=== PATIENT | male | born 1940 | race Caucasian/White ===

== ENCOUNTER → 2017-05-10 | Outpatient (CLI) | payer MEDICARE, OTHER ==
[2017-05-10 08:44] LABS: Basophils # (A) 0.1 k/uL (0-0.2); Basophils % (A) 1 %; CH 29.6; CHCM 33.7; Eosinophils # (A) 0.8 k/uL (0-0.7); Eosinophils % (A) 9 %; HCT 46.4 % (39.0-53.0); HDW 2.84; HGB 15.6 gm/dL (13.0-17.5); Luc # (Auto) 0.22; Luc % (Auto) 2; Lymphocytes # (A) 2.9 k/uL (1.0-4.8); Lymphocytes % (A) 30 %; MCH 29.8 pg (25.0-35.0); MCHC 33.7 g/dL (31.0-37.0); MCV 88.5 fL (80.0-100.0); Mean Platelet Volume 8.2; Monocytes # (A) 0.5 k/uL (0-1.0); Monocytes % (A) 5 %; Neutrophils # (A) 5.1 k/uL (1.3-7.7); Neutrophils % (A) 53 %; RBC 5.25 m/uL (4.30-5.90); RDW 13.7 % (11.5-15.5); WBC 9.6 k/uL (3.8-10.6); WBC (Perox) 9.16
[2017-05-10 10:57] LABS: ALT 45 U/L (21-72); AST 24 U/L (17-59); Alkaline Phosphatase 85 U/L (38-126); Anion Gap 11 mmol/L; Blood Urea Nitrogen 22 mg/dL (9-20); Calcium 9.7 mg/dL (8.4-10.2); Carbon Dioxide 27 mmol/L (22-30); Chloride 106 mmol/L (98-107); Cholesterol 158 mg/dL (<200); Glucose 115 mg/dL (74-99); HDL Cholesterol 53 mg/dL (40-60); Non-African American GFR(MDRD) >60 (>60 ml/min/1.73 sqM); Potassium 4.7 mmol/L (3.5-5.1); Sodium 144 mmol/L (137-145); Total Bilirubin 0.4 mg/dL (0.2-1.3); Total Protein 6.6 g/dL (6.3-8.2); Triglycerides 137 mg/dL (<150)
== END | disposition home or self-care (01) ==
LOC: LABWHC1 08:20
PROVIDERS: ATTEND Family Medicine
DX: E78.5 Hyperlipidemia, unspecified (principal); E11.9 Type 2 diabetes mellitus without complications; Z12.5 Encounter for screening for malignant neoplasm of prostate
CPT/HCPCS: 84439; 80061; 80053; 83036; 84443; 85025; 36415; G0103

== ENCOUNTER → 2018-03-28 | Outpatient (CLI) | payer MEDICARE, OTHER ==
[2018-03-28 09:42] LABS: Basophils % (A) 1 %; Eosinophils # (A) 0.6 k/uL (0-0.7); Eosinophils % (A) 8 %; HCT 47.3 % (39.0-53.0); HGB 15.1 gm/dL (13.0-17.5); Lymphocytes # (A) 2.2 k/uL (1.0-4.8); Lymphocytes % (A) 30 %; MCH 27.8 pg (25.0-35.0); MCV 86.9 fL (80.0-100.0); Mean Platelet Volume 8.1; Monocytes # (A) 0.5 k/uL (0-1.0); Monocytes % (A) 6 %; Neutrophils # (A) 3.9 k/uL (1.3-7.7); Neutrophils % (A) 53 %; Platelet Count 326 k/uL (150-450); RBC 5.44 m/uL (4.30-5.90); RDW 13.6 % (11.5-15.5); WBC 7.4 k/uL (3.8-10.6)
[2018-03-28 11:29] LABS: Albumin 3.9 g/dL (3.5-5.0); Calcium 9.9 mg/dL (8.4-10.2); Potassium 4.8 mmol/L (3.5-5.1); Total Bilirubin 0.4 mg/dL (0.2-1.3); Total Protein 6.6 g/dL (6.3-8.2)
[2018-03-28 11:45] LABS: T4, Free (Free Thyroxine) 0.93 ng/dL (0.78-2.19)
[2018-03-28 11:59] LABS: Prostate Specific Antigen 2.04 ng/mL (0.00-4.00)
== END | disposition home or self-care (01) ==
LOC: LABWHC1 09:10
PROVIDERS: ATTEND Family Medicine
DX: E11.9 Type 2 diabetes mellitus without complications (principal); E78.5 Hyperlipidemia, unspecified; Z12.5 Encounter for screening for malignant neoplasm of prostate
CPT/HCPCS: 36415; 80053; 80061; 83036; 84153; 84439; 84443; 85025

== ENCOUNTER → 2018-04-25 | Outpatient (CLI) | payer MEDICARE, OTHER ==
[2018-04-25 17:18] LABS: HCT 45.7 % (39.0-53.0); HGB 15.3 gm/dL (13.0-17.5); MCH 29.1 pg (25.0-35.0); MCHC 33.5 g/dL (31.0-37.0); MCV 86.9 fL (80.0-100.0); Mean Platelet Volume 7.7; Platelet Count 315 k/uL (150-450); RBC 5.26 m/uL (4.30-5.90); RDW 13.6 % (11.5-15.5); WBC 9.5 k/uL (3.8-10.6)
[2018-04-25 17:27] LABS: INR 1.1 (<1.2); Partial Thromboplastin Time 25.6 sec (22.0-30.0); Prothrombin Time 10.4 sec (9.0-12.0)
[2018-04-25 17:31] LABS: ALT 33 U/L (21-72); AST 20 U/L (17-59); Alkaline Phosphatase 81 U/L (38-126); Anion Gap 11 mmol/L; Blood Urea Nitrogen 19 mg/dL (9-20); Calcium 9.6 mg/dL (8.4-10.2); Carbon Dioxide 27 mmol/L (22-30); Chloride 104 mmol/L (98-107); Glucose 100 mg/dL (74-99); Potassium 4.6 mmol/L (3.5-5.1); Sodium 142 mmol/L (137-145); Total Bilirubin 0.4 mg/dL (0.2-1.3); Total Protein 6.5 g/dL (6.3-8.2)
[2018-04-25 17:50] LABS: Appearance,Urine Clear (Clear); Bilirubin,Urine Negative (Negative); Blood,Urine Negative (Negative); Color,Urine Light Yellow; Glucose,Urine (UA) Negative (Negative); Ketones,Urine Negative (Negative); Leukocyte Esterase,Urine Negative (Negative); Nitrite,Urine Negative (Negative); PH, Urine 6.5 (5.0-8.0); Protein,Urine Negative (Negative); Urobilinogen,Urine <2.0 mg/dL (<2.0)
== END | disposition home or self-care (01) ==
LOC: LABPAT 16:19
PROVIDERS: ATTEND Orthopaedic Surgery
DX: Z01.812 Encounter for preprocedural laboratory examination (principal)
CPT/HCPCS: 80053; 81003; 85027; 85610; 85730

== ENCOUNTER 2018-05-01 09:25 | Day surgery (SDC) | payer MEDICARE, OTHER ==
[~2018-05-01 09:25] MED LIST: ALPRAZolam 0.25 MG TAB PO PRN; ASPIRIN 325 MG TAB PO STA; SODIUM CHLORIDE 0.9% 1,000 ML in EMPTY BAG 1 BAG IV ONE
[2018-05-01] MEDS ORDERED: LABETALOL 5 MG/ML VIAL MDV ONE ×2 (09:59→11:41)
[2018-05-01 10:18] LABS: Glucose,Whole Blood 106 mg/dL (75-99)
[2018-05-01] MEDS ORDERED: MIDAZOLAM 2 MG/2 ML VIAL ONE (10:26)
[2018-05-01] MEDS: MIDAZOLAM 2 MG/2 ML VIAL IV ONE ×2 (10:34→11:20)
[2018-05-01] MEDS ORDERED: LIDOCAINE 2% SYG (PF) 100 MG/5 ML MISCELLANE ONE (10:38)
[2018-05-01] MEDS ORDERED: fentaNYL (PF) 50 MCG/ML 2 ML AMP ONE (10:38)
[2018-05-01] MEDS ORDERED: fentaNYL (PF) 50 MCG/ML 2 ML AMP IV ONE (10:40)
[2018-05-01] MEDS ORDERED: IOPAMIDOL-370 125ML BTL INJ ONE (11:02)
[2018-05-01] MEDS ORDERED: IOPAMIDOL-370 50ML BTL INJ ONE (11:06)
[2018-05-01] MEDS ORDERED: RX INFO: IV CONTRAST WAS GIVEN 1 EACH MISC MISCELLANE PRN (11:23)
[2018-05-01] MEDS ORDERED: IOPAMIDOL-370 100ML BTL INJ ONE (11:23)
[2018-05-01] MEDS ORDERED: SODIUM CHLORIDE 0.9% 1,000 ML IV SCH (11:30)
[2018-05-01] MEDS ORDERED: amLODIPine 5 MG TAB ONE (11:39)
[2018-05-01] MEDS ORDERED: LABETALOL 5 MG/ML VIAL MDV IVP STA (11:40)
[2018-05-01] MEDS ORDERED: amLODIPine 5 MG TAB PO STA (11:40)
[2018-05-01 16:40] VITALS: RESP 16
[2018-05-01 17:27] VITALS: BMI 33.7
[2018-05-01 17:58] LABS: Glucose,Whole Blood 173 mg/dL (75-99)
[2018-05-01 20:07] VITALS: BP 148/76; PULSE 69; TEMP 98.1
--- NOTE | 2018-05-07 09:26 | P.CARDCATH ---
Date of Procedure: 05/07/18 Preoperative Diagnosis: Positive stress test, coronary artery disease with history of previous bypass surgery, hypertension and diabetes Postoperative Diagnosis: Total occlusion of the and vein grafts, patent PERES graft to the LAD Procedure(s) Performed: Left heart catheterization with selective coronary arteriography, selective injection of all vein grafts and also PERES graft and aortic root injection Description of Procedure: HISTORY: This is a 77-year-old gentleman with history of hypertension, diabetes , hypercholesterolemia and previous bypass surgery who was going to have a knee operation. Patient had a nuclear stress test that showed moderate intensity, moderate to large area of ischemia in the inferolateral segments. Patient is advised to have a cardiac catheterization for definitive diagnosis. CONSENT:I have discussed the risks, benefits and alternative therapies for the above-mentioned procedure and for both sedation/analgesia as well as necessary blood product administration, if indicated, as they pertain to this patient. The patient has indicated understanding and acceptance of the risks and procedures discussed. [] PROCEDURE: Patient was brought to the lab in a fasting state. Patient was given some IV sedation. The right groin is infiltrated with lidocaine and right femoral artery was entered using Seldinger technique. A 6-Malay catheter was left in place and selective coronary arteriography , Selective injection of the vein grafts and PERES and also aortic root injection was performed. Patient tolerated the procedure well. Femoral angiogram was performed and Angio-Seal was applied for hemostasis. No immediate complications were noted and patient was transferred to [facility] in a stable condition. Patient is being evaluated for possible percutaneous intervention by Dr. Villanueva. Conscious Sedation: Versed 1mg Fentanyl 50g Duration 35minutes HEMODYNAMICS: The aortic pressure is about 160/80. Left ventricular end- diastolic pressures of 15-20. There was no gradient across the aortic valve. SELECTIVE CORONARY ARTERIOGRAPHY: LEFT MAIN: Short and patent and free of any significant occlusive disease THE LEFT ANTERIOR DESCENDING CORONARY ARTERY: .This is a moderate caliber vessel giving rise to 2 diagonal branches and seemed to be totally occluded in the distal distribution. The distal LAD seen by flow from the PERES and appears to be small in caliber but free of any significant focal lesions THE LEFT CIRCUMFLEX AND IS CORONARY ARTERY: .This is a moderate caliber vessel. Significant lesion involving the ostium before the origin of the large caliber OM branch. The distal circumflex also is a more moderate to large caliber vessel and seemed to be free of any significant occlusive disease. There are collaterals from the left circumflex of system to the distal RCA. THE RIGHT CORONARY ARTERY: This is totally occluded after acute marginal branch. The distal RCA is seen by collateral from circumflex. No The vein graft to the RCA: This is a total occluded proximally. THE VEIN GRAFT TO THE CIRCUMFLEX: This is totally occluded proximally. THE VEIN GRAFT TO THE DIAGONAL: This is small caliber vessel with a limited distal flow and practically nonfunctional. THE AORTIC ROOT INJECTION: This was performed and the left anterior oblique projection. This revealed normal-sized aortic root. No evidence of patent grafts. LEFT VENTRICULOGRAPHY: Not performed FINAL IMPRESSION: Total occlusion of the vein grafts. Patent PERES graft to LAD. Significant lesion involving the proximal circumflex and also diagonal branches. Total occlusion of the RCA with collaterals to the distal RCA from left circumflex system. PLAN: Maximum medical therapy. Evaluation for possible percutaneous intervention of the circumflex. PROGNOSIS: Guarded
== END 2018-05-01 20:00 | disposition home or self-care (01) ==
LOC: CATHCVL 09:25 → 3OBS 11:10 → CATHCVL 20:00
PROVIDERS: ATTEND Internal Medicine Cardiovascular Disease
DX: I25.810 Atherosclerosis of coronary artery bypass graft(s) without angina pectoris (principal); I25.82 Chronic total occlusion of coronary artery; I25.10 Atherosclerotic heart disease of native coronary artery without angina pectoris; R94.39 Abnormal result of other cardiovascular function study; I10 Essential (primary) hypertension; E11.9 Type 2 diabetes mellitus without complications; E78.00 Pure hypercholesterolemia, unspecified; E03.9 Hypothyroidism, unspecified; I25.2 Old myocardial infarction; Z79.84 Long term (current) use of oral hypoglycemic drugs; Z79.82 Long term (current) use of aspirin; Z79.890 Hormone replacement therapy; Z79.899 Other long term (current) drug therapy; Z88.5 Allergy status to narcotic agent; Z88.2 Allergy status to sulfonamides; Z87.11 Personal history of peptic ulcer disease
CPT/HCPCS: 93458; C1894; C1769; J2250; J2001; J3010; Q9967 ×3

== ENCOUNTER → 2018-08-23 | Outpatient (CLI) | payer MEDICARE, OTHER | END | disposition home or self-care (01) | LOC: LABPAT 16:45 | PROVIDERS: ATTEND Orthopaedic Surgery | DX: Z01.812 Encounter for preprocedural laboratory examination (principal) | CPT/HCPCS: 87070 ==

== ENCOUNTER 2018-09-03 07:30 | Inpatient (IN) | payer MEDICARE, OTHER ==
[~2018-09-03 07:30] MED LIST changes: +ACETAMINOPHEN TAB 500 MG TAB PO ONE; -ALPRAZolam 0.25 MG TAB PO PRN; -ASPIRIN 325 MG TAB PO STA; +MELOXICAM 7.5 MG TAB PO ONE; +ONDANSETRON 4 MG/2 ML VIAL IVP ONE; -SODIUM CHLORIDE 0.9% 1,000 ML in EMPTY BAG 1 BAG IV ONE; +TRANEXAMIC ACID 1,000 MG in SODIUM CHLORIDE 0.9% 50 ML IVPB ONE; +ceFAZolin IN SWFI 2 GM/20 ML SYRINGE IVP ONE
[2018-09-03 14:04] VITALS: BMI 30.4
[2018-09-03] MEDS ORDERED: LIDOCAINE 1% 20 ML VIAL (10MG/ML) FOR IV START INTRADERMA ONE (14:25)
[2018-09-03] MEDS ORDERED: LACTATED RINGERS 1,000 ML IV ONE ×3 (14:25→19:30)
[2018-09-03 14:31] LABS: Glucose,Whole Blood 105 mg/dL (75-99)
[2018-09-03] MEDS ORDERED: ONDANSETRON 4 MG/2 ML VIAL IVP ONE (14:32)
[2018-09-03] MEDS ORDERED: ROPIVACAINE 246.25 MG, EPINEPHrine 0.5 MG, KETOROLAC 30 MG, cloNIDine HCL/PF 80 MCG, WA... MISCELLANE ONE ×5 (14:52)
[2018-09-03] MEDS ORDERED: MIDAZOLAM 2 MG/2 ML VIAL ONE (15:37)
[2018-09-03] MEDS ORDERED: PROPOFOL 10 MG/ML 20 ML VIAL IV ONE (15:37)
[2018-09-03] MEDS ORDERED: [UNRECOGNIZED DRUG - OTHER] ONE (15:37)
[2018-09-03] MEDS ORDERED: fentaNYL (PF) 50 MCG/ML 2 ML AMP ONE (15:37)
[2018-09-03] MEDS ORDERED: ceFAZolin 3,000 MG in SODIUM CHLORIDE 0.9% IRRIGATIO 3,000 ML IRRIGATION ONE (16:34)
[2018-09-03] MEDS ORDERED: MAGNESIUM HYDROXIDE 2,400 MG/10 ML CUP PO PRN (18:30)
[2018-09-03] MEDS ORDERED: TEMAZEPAM 15 MG CAP PO PRN (18:30)
[2018-09-03] MEDS ORDERED: HYDROmorphone 1 MG/ML 1 ML SYRINGE IVP PRN ×3 (18:30)
[2018-09-03] MEDS ORDERED: NA PHOS,M-B/NA PHOS,DI-BA 133 ML ENEMA RECTAL PRN (18:30)
[2018-09-03] MEDS ORDERED: BISACODYL 10 MG SUPP RECTAL PRN (18:30)
[2018-09-03] MEDS ORDERED: NALOXONE 0.4 MG/ML 1 ML VIAL IV PRN (18:30)
[2018-09-03] MEDS ORDERED: HYDROmorphone 1 MG/ML 1 ML SYRINGE IVP ONE (19:00)
--- NOTE | 2018-09-03 19:28 | XR ---
EXAMINATION TYPE: XR knee limited LT DATE OF EXAM: 09/03/2018 COMPARISON: NONE HISTORY: Postop TECHNIQUE: 2 views FINDINGS: There is left knee prosthesis. Components appear in anatomic position. IMPRESSION: No complicating process seen.
[2018-09-03] MEDS ORDERED: WARFARIN 5 MG TAB PO ONE (21:00)
[2018-09-03] MEDS: ONDANSETRON 4 MG/2 ML VIAL IVP PRN (21:49)
[2018-09-03] MEDS: MONTELUKAST 5 MG CHEWABLE PO SCH (22:48)
[2018-09-03] MEDS: SENNOSIDES-DOCUSATE SODIUM 1 EACH TAB PO SCH (22:49)
[2018-09-03] MEDS: amLODIPine 10 MG TAB PO SCH (22:50)
[2018-09-03] MEDS: LACTATED RINGERS 1,000 ML IV SCH (22:50)
[2018-09-03] MEDS: METOPROLOL TARTRATE 25 MG TAB PO SCH (22:50)
[2018-09-03] MEDS: INSULIN ASPART 100 UNIT/ML 1 ML 10 ML VIAL SQ SCH (22:53)
[2018-09-03 22:56] LABS: Glucose,Whole Blood 133 mg/dL (75-99)
[2018-09-03] MEDS: ceFAZolin IN SWFI 2 GM/20 ML SYRINGE IVP SCH (23:51)
[2018-09-04] MEDS: LACTATED RINGERS 1,000 ML IV SCH ×2 (03:15→19:54)
[2018-09-04] MEDS: HYDROcodone/APAP 5-325MG 1 EACH TAB PO PRN ×4 (03:16→21:19)
[2018-09-04] MEDS: LEVOTHYROXINE 50 MCG TAB PO SCH (05:58)
[2018-09-04 07:30] LABS: Glucose,Whole Blood 87 mg/dL (75-99)
[2018-09-04 07:42] LABS: INR 1.4 (<1.2); Prothrombin Time 12.8 sec (9.0-12.0)
[2018-09-04 07:44] LABS: Basophils % (A) 0 %; Eosinophils # (A) 0.2 k/uL (0-0.7); Eosinophils % (A) 3 %; HCT 34.5 % (39.0-53.0); HGB 10.5 gm/dL (13.0-17.5); Hypochromasia Marked; Lymphocytes # (A) 1.9 k/uL (1.0-4.8); Lymphocytes % (A) 21 %; MCH 24.6 pg (25.0-35.0); MCHC 30.3 g/dL (31.0-37.0); MCV 81.3 fL (80.0-100.0); Monocytes # (A) 0.6 k/uL (0-1.0); Monocytes % (A) 7 %; Neutrophils # (A) 6.3 k/uL (1.3-7.7); Neutrophils % (A) 68 %; Platelet Count 321 k/uL (150-450); RBC 4.25 m/uL (4.30-5.90); RDW 14.8 % (11.5-15.5); WBC 9.3 k/uL (3.8-10.6)
[2018-09-04] MEDS: LACTOBACILLUS ACIDOPH & BULGAR 1 EACH PACKET PO SCH (08:38)
[2018-09-04] MEDS: MULTIVITAMINS, THERA 1 EACH TAB PO SCH (08:38)
[2018-09-04] MEDS: LINAGLIPTIN 5 MG TABLET PO SCH (08:38)
[2018-09-04] MEDS: ATORVASTATIN 40 MG TAB PO SCH (08:39)
[2018-09-04] MEDS: hydrOXYzine PAMOATE 25 MG CAP PO PRN ×2 (08:39→14:18)
[2018-09-04] MEDS: TAMSULOSIN 0.4 MG CAP.ER.24H PO SCH (08:39)
[2018-09-04] MEDS: MELOXICAM 7.5 MG TAB PO SCH (08:40)
[2018-09-04] MEDS: ASPIRIN 81 MG PO SCH ×2 (08:42→08:50)
[2018-09-04] MEDS: INSULIN ASPART 100 UNIT/ML 1 ML 10 ML VIAL SQ SCH ×4 (08:43→21:16)
[2018-09-04] MEDS: metFORMIN 500 MG TAB PO SCH (08:48)
[2018-09-04] MEDS: METOPROLOL TARTRATE 25 MG TAB PO SCH ×2 (08:48→21:17)
[2018-09-04] MEDS: ceFAZolin IN SWFI 2 GM/20 ML SYRINGE IVP SCH (09:52)
--- NOTE | 2018-09-04 11:04 | P.PN ---
Subjective Progress Note Date: 09/04/18 Principal diagnosis: Degenerative arthritis left knee. Status post total left knee arthroplasty. This is a 70-year-old male who is status post total left knee arthroplasty. He is doing well from an orthopedic standpoint. He has no new complaints or concerns today. Vital signs and labs are stable. Objective - Vital Signs Vital signs: Vital Signs Temp 97.6 F 09/04/18 07:00 Pulse 73 09/04/18 07:00 Resp 18 09/04/18 07:00 BP 110/69 09/04/18 07:00 Pulse Ox 100 09/04/18 07:00 Intake & Output 09/03/18 09/04/18 09/04/18 18:59 06:59 18:59 Intake Total 195 300 Output Total 100 300 Balance 1851 0 Weight 85.729 kg Intake: IV 1950 Intake, IV Titration 200 Amount Lactated Ringers 1,000 ml 200 @ 100 mls/hr IV .Q10H MADHU Rx#:[id number] Oral 100 Output: Urine 300 Estimated Blood Loss 100 Other: Voiding Method Urinal # Voids 2 # Bowel Movements 0 # Emeses 0 - Exam This is a pleasant 70-year-old male in no acute distress. He is alert and oriented 3. Exam the left lower extremity reveals no erythema or drainage. He has full straight leg raise without difficulty. He has full foot and ankle motion without difficulty or pain. Neurovascular status to the lower extremities intact. - Labs CBC & Chem 7: 09/04/18 06:13 Labs: Abnormal Lab Results - Last 24 Hours (Table) 09/03/18 09/03/18 09/04/18 Range/Units 14:30 22:53 06:13 RBC 4.25 L (4.30-5.90) m/uL Hgb 10.5 L (13.0-17.5) gm/dL Hct 34.5 L (39.0-53.0) % MCH 24.6 L (25.0-35.0) pg MCHC 30.3 L (31.0-37.0) g/dL PT (9.0-12.0) sec INR (<1.2) POC Glucose (mg/dL) 105 H 133 H (75-99) mg/dL 09/04/18 Range/Units 06:13 RBC (4.30-5.90) m/uL Hgb (13.0-17.5) gm/dL Hct (39.0-53.0) % MCH (25.0-35.0) pg MCHC (31.0-37.0) g/dL PT 12.8 H (9.0-12.0) sec INR 1.4 H (<1.2) POC Glucose (mg/dL) (75-99) mg/dL Assessment and Plan Assessment: Status post total left knee arthroplasty. Degenerative arthritis left knee. Plan: The clinical findings are discussed the patient. The patient surgery was late in the afternoon yesterday and did not arrive to the floor until 2129. The patient is requesting a more night stay in the hospital for pain management. We 're planning discharge to home tomorrow with home care.
--- NOTE | 2018-09-04 11:04 | P.CONS ---
History of Present Illness - History of Present Illness 78-year-old male is post total left knee arthroplasty for severe osteoarthritis left knee. Patient has a history of diabetes type 2, coronary disease with CABG , GERD, BPH hypertension hyperlipidemia hypothyroidism. Patient is resting in bed right now encouraged use incentive spirometry. Pain is managed at this time Review of Systems Musculoskeletal: left: knee pain Past Medical History Past Medical History: Asthma, Diabetes Mellitus, GERD/Reflux, Hearing Disorder / Deafness, Hypertension, Osteoarthritis (OA), Thyroid Disorder Additional Past Medical History / Comment(s): HX DIVERTICULITIS, BACK & NECK PAIN, SKIN CANCER, ARTHRITIS WITH PAIN BOTH KNEES, STATES HX OF KIDNEY AND PROSTATE INFECTION., RINGING IN EARS AND 10 % HEARING LOSS., TOTAL LEFT KNEE SURGERY SCHEDULED FOR 04/30/18 CANCELLED., HEART CATH SCHEDULED WITH DR CARTER. , SEE CARDIOLOGY H & P. History of Any Multi-Drug Resistant Organisms: None Reported Past Surgical History: Back Surgery, Bowel Resection, Coronary Bypass/CABG, Heart Catheterization, Orthopedic Surgery Additional Past Surgical History / Comment(s): BACK SURGERY (1985,1986)., CABG 5 VELLE2010)., RIGHT TRIGGER FINGER, RIGHT CARPAL TUNNEL, GANGLION CYST LEFT WRIST. Past Anesthesia/Blood Transfusion Reactions: No Reported Reaction Additional Past Anesthesia/Blood Transfusion Reaction / Comm: MOM= PONV Past Psychological History: No Psychological Hx Reported Smoking Status: Never smoker Past Alcohol Use History: None Reported Past Drug Use History: None Reported - Past Family History Father Family Medical History: Cancer Additional Family Medical History / Comment(s): PROSTATE & SKIN CANCER Brother(s) Family Medical History: Cancer Medications and Allergies Home Medications Medication Instructions Recorded Confirmed Type Atorvastatin [Lipitor] 40 mg PO QAM 02/26/15 09/03/18 History Esomeprazole Magnesium [NexIUM] 40 mg PO AC-SUPPER 02/26/15 09/03/18 History Metoprolol Tartrate [Lopressor] 25 mg PO BID 02/26/15 09/03/18 History Montelukast Sodium [Singulair] 5 mg PO HS 02/26/15 09/03/18 History Multivitamin [Multiple Vitamins] 1 tab PO DAILY 02/26/15 09/03/18 History Naproxen Sodium [Aleve] 220 mg PO DAILY 02/26/15 09/03/18 History Tamsulosin HCl [Flomax] 0.4 mg PO DAILY 02/26/15 09/03/18 History Aspirin [Adult Low Dose Aspirin EC] 81 mg PO DAILY 04/24/18 09/03/18 History Levothyroxine Sodium [Synthroid] 50 mcg PO DAILY 04/24/18 09/03/18 History amLODIPine BESYLATE [Norvasc] 10 mg PO HS 04/24/18 09/03/18 History L.acidoph,Paracasei, B.lactis 1 cap PO DAILY 08/23/18 09/03/18 History [Probiotic] sitaGLIPtin PHOS/metFORMIN HCL 1 tab PO QAM 08/23/18 09/03/18 History [Janumet 50-500 mg Tablet] HYDROcodone/APAP 5-325MG [[place] 1 - 2 each PO Q4-6H PRN #50 tab 09/03/18 Rx 5-325] Sennosides-Docusate Sodium 1 tab PO BID #60 tablet 09/03/18 Rx [Senokot-S] Warfarin [Coumadin] 2.5 mg PO DAILY #1 tab 09/03/18 Rx Allergies Allergy/AdvReac Type Severity Reaction Status Date / Time codeine Allergy Hallucinati Verified 09/03/18 20:55 ons lisinopril Allergy Cough Verified 09/03/18 20:55 Sulfa (Sulfonamide AdvReac Nausea & Verified 09/03/18 20:55 Antibiotics) Vomiting tape Allergy Rash/Hives, Uncoded 09/03/18 14:04 states "paper tape is ok" Physical Exam Vitals: Vital Signs Temp Pulse Resp BP Pulse Ox 09/04/18 07:00 97.6 F 73 18 110/69 100 09/04/18 03:46 70 16 09/04/18 00:56 98.0 F 70 15 116/78 96 09/03/18 22:53 97.6 F 68 16 115/61 97 09/03/18 19:39 73 16 117/57 92 L 09/03/18 19:30 74 16 117/57 92 L 09/03/18 19:15 73 16 125/60 93 L 09/03/18 19:00 76 16 132/55 99 09/03/18 18:45 74 16 120/59 92 L 09/03/18 18:24 976 F H 80 18 141/64 93 L 09/03/18 14:11 97.7 F 72 16 143/66 96 Intake and Output 09/03/18 09/04/18 09/04/18 22:59 06:59 14:59 Intake Total 2151 Output Total 400 Balance 1751 Intake: IV 1851 Intake, IV Titration 200 Amount Lactated Ringers 1,000 ml 200 @ 100 mls/hr IV .Q10H [facility]ADHU Rx#:[id number] Oral 100 Output: Urine 300 Estimated Blood Loss 100 Other: Voiding Method Urinal Urinal # Voids 2 # Bowel Movements 0 # Emeses 0 - Constitutional General appearance: mild distress, obese - EENT Eyes: PERRLA Ears: bilateral: normal - Neck Neck: normal ROM - Respiratory Respiratory: bilateral: CTA - Cardiovascular Rhythm: regular - Gastrointestinal General gastrointestinal: soft - Integumentary Integumentary: normal - Neurologic Neurologic: CNII-XII intact - Psychiatric Psychiatric: A&O x's 3, appropriate affect, intact judgment & insight Results CBC & Chem 7: 09/04/18 06:13 Labs: Abnormal Lab Results - Last 24 Hours (Table) 09/03/18 09/03/18 09/04/18 Range/Units 14:30 22:53 06:13 RBC 4.25 L (4.30-5.90) m/uL Hgb 10.5 L (13.0-17.5) gm/dL Hct 34.5 L (39.0-53.0) % MCH 24.6 L (25.0-35.0) pg MCHC 30.3 L (31.0-37.0) g/dL PT (9.0-12.0) sec INR (<1.2) POC Glucose (mg/dL) 105 H 133 H (75-99) mg/dL 09/04/18 Range/Units 06:13 RBC (4.30-5.90) m/uL Hgb (13.0-17.5) gm/dL Hct (39.0-53.0) % MCH (25.0-35.0) pg MCHC (31.0-37.0) g/dL PT 12.8 H (9.0-12.0) sec INR 1.4 H (<1.2) POC Glucose (mg/dL) (75-99) mg/dL Assessment and Plan Plan: Assessment Osteoarthritis left knee post total left knee arthroplasty History of diabetes type 2 Coronary disease with history of CABG GERD BPH Hypertension Hyperlipidemia Hypothyroidism History of asthma Hard of hearing Plan We will monitor patient's diabetes and for changes in condition home medications reordered
[2018-09-04 11:51] LABS: Glucose,Whole Blood 101 mg/dL (75-99)
[2018-09-04 13:24] LABS: Hemoglobin A1C 6.1 % (4.0-6.0)
[2018-09-04] MEDS: PANTOPRAZOLE 40 MG TABLET PO SCH (17:11)
[2018-09-04 17:14] LABS: Glucose,Whole Blood 118 mg/dL (75-99)
[2018-09-04] MEDS ORDERED: WARFARIN 5 MG TAB PO ONE (18:00)
[2018-09-04 20:22] LABS: Glucose,Whole Blood 124 mg/dL (75-99)
[2018-09-04] MEDS: SENNOSIDES-DOCUSATE SODIUM 1 EACH TAB PO SCH (21:16)
[2018-09-04] MEDS: MONTELUKAST 5 MG CHEWABLE PO SCH (21:17)
[2018-09-04] MEDS: amLODIPine 10 MG TAB PO SCH (21:17)
[2018-09-05] MEDS: LACTATED RINGERS 1,000 ML IV SCH ×2 (00:03→12:02)
[2018-09-05] MEDS: HYDROcodone/APAP 5-325MG 1 EACH TAB PO PRN (05:52)
[2018-09-05] MEDS: LEVOTHYROXINE 50 MCG TAB PO SCH (05:52)
[2018-09-05 07:38] LABS: Glucose,Whole Blood 104 mg/dL (75-99)
[2018-09-05] MEDS: INSULIN ASPART 100 UNIT/ML 1 ML 10 ML VIAL SQ SCH ×3 (07:43→18:17)
[2018-09-05 08:04] VITALS: RESP 16
--- NOTE | 2018-09-05 10:30 | P.PN ---
Subjective Patient in chair at bedside states he's been up and related bathroom pain controlled Objective - Vital Signs Vital signs: Vital Signs Temp 99.6 F 09/05/18 08:03 Pulse 86 09/05/18 08:03 Resp 16 09/05/18 08:03 BP 129/70 09/05/18 08:03 Pulse Ox 93 L 09/05/18 08:03 Intake & Output 09/04/18 09/05/18 09/05/18 18:59 06:59 18:59 Intake Total 1080 Output Total 700 600 Balance -700 480 Intake: Intake, IV Titration 0 Amount Lactated Ringers 1,000 ml 0 @ 100 mls/hr IV .Q10H [facility]ADHU Rx#:[id number] Oral 1080 Output: Urine 700 600 Other: Voiding Method Urinal # Voids 1 # Bowel Movements 0 # Emeses 0 - Constitutional General appearance: Present: mild distress - EENT Eyes: Present: PERRLA Ears: bilateral: normal - Neck Neck: Present: normal ROM - Respiratory Respiratory: bilateral: CTA - Cardiovascular Rhythm: regular - Gastrointestinal General gastrointestinal: Present: soft - Integumentary Integumentary: Present: normal - Neurologic Neurologic: Present: CNII-XII intact - Psychiatric Psychiatric: Present: A&O x's 3, appropriate affect, intact judgment & insight - Labs CBC & Chem 7: 09/04/18 06:13 Labs: Abnormal Lab Results - Last 24 Hours (Table) 09/04/18 09/04/18 09/04/18 Range/Units 06:13 11:39 17:01 POC Glucose (mg/dL) 101 H 118 H (75-99) mg/dL Hemoglobin A1c 6.1 H (4.0-6.0) % 09/04/18 09/05/18 Range/Units 20:10 07:23 POC Glucose (mg/dL) 124 H 104 H (75-99) mg/dL Hemoglobin A1c (4.0-6.0) % Assessment and Plan Plan: Assessment Osteoarthritis left knee post total left knee arthroplasty Diabetes type 2 Coronary disease with history of CABG GERD BPH Hypertension Hyperlipidemia Hypothyroidism History of asthma stable Plan Patient stable for discharge
[2018-09-05 10:42] LABS: INR 2.2 (<1.2); Prothrombin Time 19.6 sec (9.0-12.0)
[2018-09-05 11:27] LABS: Glucose,Whole Blood 132 mg/dL (75-99)
[2018-09-05] MEDS: ASPIRIN 81 MG PO SCH (12:01)
[2018-09-05] MEDS: METOPROLOL TARTRATE 25 MG TAB PO SCH (12:01)
[2018-09-05] MEDS: LINAGLIPTIN 5 MG TABLET PO SCH (12:01)
[2018-09-05] MEDS: LACTOBACILLUS ACIDOPH & BULGAR 1 EACH PACKET PO SCH (12:02)
[2018-09-05] MEDS: MULTIVITAMINS, THERA 1 EACH TAB PO SCH (12:02)
[2018-09-05] MEDS: metFORMIN 500 MG TAB PO SCH (12:02)
[2018-09-05] MEDS: ONDANSETRON 4 MG/2 ML VIAL IVP PRN (12:10)
[2018-09-05 12:18] VITALS: PULSE 90
[2018-09-05 14:38] VITALS: BP 143/78; TEMP 99.7
[2018-09-05 17:09] LABS: Glucose,Whole Blood 143 mg/dL (75-99)
[2018-09-05] MEDS: ATORVASTATIN 40 MG TAB PO SCH (17:13)
[2018-09-05] MEDS: TAMSULOSIN 0.4 MG CAP.ER.24H PO SCH (17:13)
[2018-09-05] MEDS: MELOXICAM 7.5 MG TAB PO SCH (17:13)
[2018-09-05] MEDS ORDERED: WARFARIN 2.5 MG TAB PO ONE (18:00)
[2018-09-05] MEDS: PANTOPRAZOLE 40 MG TABLET PO SCH (18:18)
--- NOTE | 2018-09-06 16:40 | P.OP ---
Date of Procedure: 09/03/18 Procedure(s) Performed: PREOPERATIVE DIAGNOSIS: Left knee severe osteoarthritis with genu varum POSTOPERATIVE DIAGNOSIS: Left knee severe osteoarthritis with genu varum OPERATION: Left knee cemented total replacement arthroplasty. ANESTHESIA: Spinal ESTIMATED BLOOD LOSS: 100 ml. EYE GLASS FRAME POLISHER: Parisa Lu PA-C (assistance with: patient positioning, retraction, exposure, hemostasis, leg positioning, implantation, irrigation, closure, dressing) COMPLICATIONS: None apparent. COMPONENTS IMPLANTED: Persona system from [employer] INDICATIONS: Mr. Beach is a 78 year old male with a history of left knee osteoarthritis. Conservative treatment has been tried and has been unsuccessful in controlling symptoms adequately. The operation of knee replacement has been discussed at length in the office, as well as potential risks and complications. These are inclusive of, but not limited to: bleeding, infection, scarring, discomfort, blood vessel and nerve damage, need for further surgery, failure to relieve symptoms, persistence, recurrence, or worsening of problems, loosening, dislocation, wear, blood clot, pulmonary embolism, , gait dysfunction, stiffness, and other risks as discussed in the office. The patient elects to proceed and the consent form has been signed. PROCEDURE: The patient was taken to the operating room and positioned on the operating room table in the supine position. Anesthesia was initiated. Care was taken to make sure that all pressure points were adequately padded. The operative lower extremity was prepped and draped in the usual aseptic fashion using ChloraPrep. Ioban drape was used for the case and the patient received intravenous antibiotics within one hour of the incision. A pneumotourniquet and leg henry were used for the case. The limb was exsanguinated with an Esmarch bandage and the tourniquet was inflated to 350 mmHg. Time-out was called confirming the patient's identity, side, procedure and administration of antibiotics and tranexamic acid, 1 g IV. The incision was then created midline directly over the knee, carried down through skin and into the subcutaneous tissues and down to fascia. Full thickness subcutaneous medial flap was developed. Medial parapatellar arthrotomy was performed and the interior of the knee was inspected. There was end-stage osteoarthritis of the knee with a mild to moderate genu varum type deformity. The fat pad was excised and proximal medial release on the tibia was completed using meticulous dissection and a curved osteotome. The anterior cruciate ligament was taken down. Note was made of significant attrition of the anterior and significant degenerative appearance of the posterior cruciate ligaments. The exposure was excellent. The knee was flexed 90 degrees and the patella was everted. A spot was chosen on the femur approximately 1 cm anterior to the posterior cruciate ligament insertion and an intramedullary hole was created within the femur. The intramedullary guide was then set to 5 degrees of valgus. The distal cutting block was attached and pinned into position. An appropriate amount of distal femoral resection was set. The oscillating saw was then used to make the distal femoral cut. This cut was confirmed to be flat with the flat end of an osteotome. The retractors were placed around the tibia and the tibial surface was addressed. The angle and depth of resection was adjusted using an extramedullary cutting guide. The guide had a built-in 3 degree posterior slope cut. Once the cutting guide was adjusted appropriately and in line with the axis of the tibia and confirmed to be in good position in relation to the second metatarsal and transmalleolar axis, the tibial cut was then created with protection of the posterior neurovascular structures and the collateral ligaments. The tibial cut surface was removed and sized. Femoral sizing was then accomplished using anterior referencing. Care was taken to analyze the posterior condyles for signs of deficiency or severe wear, and adjustments to the guide were made, as appropriate. 3 degree external rotation pins were placed. The cutting jig for the femur was applied to these pins. The planned cuts were further analyzed prior to performing them with the oscillating saw. No femoral notching was produced. Bone fragments were removed and the cut surfaces were finished, as necessary, with a reciprocating saw. Spacer block technique was then used to confirm that the flexion and extension gaps were equal. Soft tissue releases and adjustment of the tibial and/or femoral cuts were made, as necessary, until the gaps were equal. This included release of the posterior cruciate ligament, which was tight in this patient. The femur was then further finished for a posterior cruciate ligament substituting component. Patellar resurfacing was performed using a reamer. The size of the required patellar component was estimated and the patellar surface was then reamed down to a residual thickness which would recreate the augustine thickness with the component. The exact placement of the patellar component was adjusted for position based on preoperative x-rays and intraoperative findings. Prior to placing trial components, anesthetic solution consisting of ropivicaine with epinephrine, ketorolac, and clonidine was injected carefully and methodically in a grid pattern using aspiration technique into the soft tissue around the knee circumferentially, starting with the deeper tissues first and progressing to fascia, and then finally the skin/subcutaneous tissue. Particular care was taken when injecting the posterior capsule. The trial components were inserted. The tibial tray was allowed to self center and the patella was noted to track very well. The position of the tibial component was marked and the tibia was then finished for a stemmed tibial component. Cement was mixed on the back table and applied to the final components. Trial components were removed and the cut surfaces of the bone were pulse lavaged thoroughly and dried. Cement was then applied to the tibial surface and pressurized into the surface using finger pressurization technique. The tibial component was then applied and excess cement was removed after it was impacted securely and noted to be flush with the cut surface. In similar fashion, the cement was applied to the cut femoral surface, pressurized in using finger pressurization and the component was impacted into place. Excess cement was removed. The polyethylene spacer was then implanted and locked into position. The patellar component was then applied in similar technique and a patellar clamp was used to hold the patella in place as the cement hardened. Once the cement had fully hardened, the knee was reinspected. Any other cement extrusion was removed and final kinematic testing showed range of motion from 0 to 130 degrees with excellent stability, both medially and laterally and appropriate alignment of the leg. Patellar tracking was excellent. The knee was then thoroughly pulse lavaged with normal saline. The tourniquet was deflated and hemostasis was obtained with electrocautery and IV tranexamic acid, 1 g given prior to inflation of the tourniquet and another gram given at the time of closure. Closure was with #2 Ethibond in the fascia and supplemented with #2 Quill, 2-0 Vicryl suture was used for the subcutaneous tissues and 3-0 Quill for the skin. Dermabond/Steri-Strips were then applied. A lightly compressive dressing was applied using Webril and an Kulwinder wrap. The patient was then transferred to stretcher and taken to the recovery room in stable condition. Sponge and needle counts were correct.
== END 2018-09-05 19:38 | disposition home health service (06) | DRG 470 ==
LOC: 2ORMAIN 13:27 → 4SSUR 20:14
PROVIDERS: ADMIT Orthopaedic Surgery; ATTEND Orthopaedic Surgery
PROC: 0SRD0J9 Replacement of Left Knee Joint with Synthetic Substitute, Cemented, Open Approach (ICD-10-PCS; principal; 2018-09-03 07:30)
DX: M17.0 Bilateral primary osteoarthritis of knee (principal); M21.162 Varus deformity, not elsewhere classified, left knee; Z95.1 Presence of aortocoronary bypass graft; N40.0 Benign prostatic hyperplasia without lower urinary tract symptoms; K21.9 Gastro-esophageal reflux disease without esophagitis; I10 Essential (primary) hypertension; E78.5 Hyperlipidemia, unspecified; E11.9 Type 2 diabetes mellitus without complications; E03.9 Hypothyroidism, unspecified; J45.909 Unspecified asthma, uncomplicated; H91.90 Unspecified hearing loss, unspecified ear; Z85.828 Personal history of other malignant neoplasm of skin; Z80.8 Family history of malignant neoplasm of other organs or systems; Z80.42 Family history of malignant neoplasm of prostate; Z79.899 Other long term (current) drug therapy; Z79.82 Long term (current) use of aspirin; Z79.01 Long term (current) use of anticoagulants; Z79.84 Long term (current) use of oral hypoglycemic drugs; Z79.890 Hormone replacement therapy; Z79.1 Long term (current) use of non-steroidal anti-inflammatories (NSAID); Z79.891 Long term (current) use of opiate analgesic; Z88.1 Allergy status to other antibiotic agents; Z88.5 Allergy status to narcotic agent; Z88.2 Allergy status to sulfonamides; Z88.8 Allergy status to other drugs, medicaments and biological substances; Z91.048 Other nonmedicinal substance allergy status; K08.409 Partial loss of teeth, unspecified cause, unspecified class; I25.10 Atherosclerotic heart disease of native coronary artery without angina pectoris
CPT/HCPCS: 83036; 85025; 85610; 88300

== ENCOUNTER 2019-03-04 10:54 | Day surgery (SDC) | payer MEDICARE, OTHER ==
[~2019-03-04 10:54] MED LIST changes: +LACTATED RINGERS 1,000 ML IV SCH; +LIDOCAINE 1% 20 ML VIAL (10MG/ML) FOR IV START INTRADERMA PRN; +MIDAZOLAM 2 MG/2 ML VIAL IV PRN; +TRANEXAMIC ACID 1,000 MG in SODIUM CHLORIDE 0.9% 100 ML IVPB ONE; -TRANEXAMIC ACID 1,000 MG in SODIUM CHLORIDE 0.9% 50 ML IVPB ONE; +fentaNYL (PF) 50 MCG/ML 2 ML AMP IV PRN
[2019-03-04] MEDS ORDERED: MIDAZOLAM (PF) 2 MG/2 ML VIAL IVP ONE (11:25)
[2019-03-04] MEDS ORDERED: ONDANSETRON 4 MG/2 ML VIAL IVP ONE (11:42)
[2019-03-04] MEDS ORDERED: DEXAMETHASONE SOD PHOSPHATE 10 MG/ML 1 ML VIAL IV ONE (11:43)
[2019-03-04 11:48] LABS: Glucose,Whole Blood 93 mg/dL (75-99)
--- NOTE | 2019-03-04 11:51 | P.ONQ ---
Anesthesiology Proc Note - PNB - Peripheral Nerve Block Performed Right Adductor Canal Infusion Procedure Start Time: 11:25 Procedure Stop Time: 11:36 Indication: Acute Post-Operative Pain, Requested by physician (Dr Nassar) Sedation Type: Sedate with meaningful contact maintained Preparation: Sterile Dressing Catheter: Indwelling Needle Types: On-Q Needle Size: 100mm (4") Needle Gauge: 20 Technique: Ultrasound Injectate: 0.5% Ropivacaine (see comment for volume) (30 mls) Blood Aspirated: No Pain Paresthesia on Injection Noted: No Resistance on Injection: Normal Events: Uneventful and Well Tolerated
[2019-03-04] MEDS ORDERED: ROPIVACAINE 1,100 MG, SODIUM CHLORIDE 0.9% 500 ML 330 ML MISCELLANE PRN ×2 (11:52)
[2019-03-04] MEDS ORDERED: fentaNYL (PF) 50 MCG/ML 2 ML AMP ONE (12:28)
[2019-03-04] MEDS ORDERED: TRANEXAMIC ACID 1,000 MG/10 ML VIAL ONE (12:28)
[2019-03-04] MEDS ORDERED: MIDAZOLAM 2 MG/2 ML VIAL ONE (12:28)
[2019-03-04] MEDS ORDERED: diphenhydrAMINE 50 MG/ML 1 ML VIAL ONE (12:28)
[2019-03-04] MEDS ORDERED: SODIUM CHLORIDE 0.9% 100 ML BAG ONE (12:28)
[2019-03-04] MEDS ORDERED: ceFAZolin 3,000 MG in SODIUM CHLORIDE 0.9% IRRIGATIO 3,000 ML IRRIGATION ONE (12:30)
[2019-03-04] MEDS ORDERED: ROPIVACAINE 246.25 MG, EPINEPHrine 0.5 MG, KETOROLAC 30 MG, cloNIDine HCL/PF 80 MCG, WA... MISCELLANE ONE ×5 (12:36)
[2019-03-04] MEDS ORDERED: LACTATED RINGERS 1,000 ML IV ONE (13:39)
--- NOTE | 2019-03-04 14:23 | P.OP ---
Date of Procedure: 03/04/19 Procedure(s) Performed: PREOPERATIVE DIAGNOSIS: Right knee severe osteoarthritis with genu varum POSTOPERATIVE DIAGNOSIS: Right knee severe osteoarthritis with genu varum OPERATION: Right knee cemented total replacement arthroplasty. ANESTHESIA: Spinal ESTIMATED BLOOD LOSS: 100 ml. RAILCAR CARPENTER: Parisa Lu PA-C (assistance with: patient positioning, retraction, exposure, hemostasis, leg positioning, implantation, irrigation, closure, dressing) COMPLICATIONS: None apparent. COMPONENTS IMPLANTED: Persona system from [employer] INDICATIONS: Mr. Beach is a 78 year old male with a history of right knee osteoarthritis. He has already undergone left knee replacement with excellent results. The patient's right knee is end-stage, and conservative management has failed. The operation of knee replacement has been discussed at length in the office, as well as potential risks and complications. These are inclusive of, but not limited to: bleeding, infection, scarring, discomfort, blood vessel and nerve damage, need for further surgery, failure to relieve symptoms, persistence, recurrence, or worsening of problems, loosening, dislocation, wear, blood clot, pulmonary embolism, , gait dysfunction, stiffness, and other risks as discussed in the office. The patient elects to proceed and the consent form has been signed. PROCEDURE: The patient was taken to the operating room and positioned on the operating room table in the supine position. Anesthesia was initiated. Care was taken to make sure that all pressure points were adequately padded. The operative lower extremity was prepped and draped in the usual aseptic fashion using ChloraPrep. Ioban drape was used for the case and the patient received intravenous antibiotics within one hour of the incision. A pneumotourniquet and leg henry were used for the case. The limb was exsanguinated with an Esmarch bandage and the tourniquet was inflated to 350 mmHg. Time-out was called confirming the patient's identity, side, procedure and administration of antibiotics and tranexamic acid. The incision was then created midline directly over the knee, carried down through skin and into the subcutaneous tissues and down to fascia. Full thickness subcutaneous medial flap was developed. Medial parapatellar arthrotomy was performed and the interior of the knee was inspected. There was end-stage osteoarthritis of the knee with a mild to moderate genu varum type deformity. The fat pad was excised and proximal medial release on the tibia was completed using meticulous dissection and a curved osteotome. The anterior cruciate ligament was taken down. Note was made of significant attrition of the anterior and significant degenerative appearance of the cruciate ligaments. The exposure was excellent. The knee was flexed 90 degrees and the patella was everted. A spot was chosen on the femur approximately 1 cm anterior to the posterior cruciate ligament insertion and an intramedullary hole was created within the femur. The intramedullary guide was then set to 5 degrees of valgus. The distal cutting block was attached and pinned into position. An appropriate amount of distal femoral resection was set. The oscillating saw was then used to make the distal femoral cut. This cut was confirmed to be flat with the flat end of an osteotome. The retractors were placed around the tibia and the tibial surface was addressed. The angle and depth of resection was adjusted using an extramedullary cutting guide. The guide had a built-in 3 degree posterior slope cut. Once the cutting guide was adjusted appropriately and in line with the axis of the tibia and confirmed to be in good position in relation to the second metatarsal and transmalleolar axis, the tibial cut was then created with protection of the posterior neurovascular structures and the collateral ligaments. The tibial cut surface was removed and sized. Femoral sizing was then accomplished using anterior referencing. Care was taken to analyze the posterior condyles for signs of deficiency or severe wear, and adjustments to the guide were made, as appropriate. 3 degree external rotation pins were placed. The cutting jig for the femur was applied to these pins. The planned cuts were further analyzed prior to performing them with the oscillating saw. No femoral notching was produced. Bone fragments were removed and the cut surfaces were finished, as necessary, with a reciprocating saw. Spacer block technique was then used to confirm that the flexion and extension gaps were equal. Soft tissue releases and adjustment of the tibial and/or femoral cuts were made, as necessary, until the gaps were equal. This included release of the posterior cruciate ligament, which was excessively tight in this patient. The femur was then further finished for a posterior cruciate ligament substituting component. Patellar resurfacing was performed using a reamer. The size of the required patellar component was estimated and the patellar surface was then reamed down to a residual thickness which would recreate the [place] thickness with the component. The exact placement of the patellar component was adjusted for position based on preoperative x-rays and intraoperative findings. Prior to placing trial components, anesthetic solution consisting of ropivicaine with epinephrine, ketorolac, and clonidine was injected carefully and methodically in a grid pattern using aspiration technique into the soft tissue around the knee circumferentially, starting with the deeper tissues first and progressing to fascia, and then finally the skin/subcutaneous tissue. Particular care was taken when injecting the posterior capsule. The trial components were inserted. The tibial tray was allowed to self center and the patella was noted to track very well. The position of the tibial component was marked and the tibia was then finished for a stemmed tibial component. Cement was mixed on the back table and applied to the final components. Trial components were removed and the cut surfaces of the bone were pulse lavaged thoroughly and dried. Cement was then applied to the tibial surface and pressurized into the surface using finger pressurization technique. The tibial component was then applied and excess cement was removed after it was impacted securely and noted to be flush with the cut surface. In similar fashion, the cement was applied to the cut femoral surface, pressurized in using finger pressurization and the component was impacted into place. Excess cement was removed. The polyethylene spacer was then implanted and locked into position. The patellar component was then applied in similar technique and a patellar clamp was used to hold the patella in place as the cement hardened. Once the cement had fully hardened, the knee was reinspected. Any other cement extrusion was removed and final kinematic testing showed range of motion from 0 to 130 degrees with excellent stability, both medially and laterally and appropriate alignment of the leg. Patellar tracking was excellent. The knee was then thoroughly pulse lavaged with normal saline. The tourniquet was deflated and hemostasis was obtained with electrocautery and IV tranexamic acid, 1 g given at the start of the operation and 1 g at the start of closure. Closure was with #2 Ethibond in the fascia/capsule and supplemented with #2 Quill, 2-0 Vicryl suture was used for the subcutaneous tissues and 3-0 Quill for the skin. Dermabond/Steri-Strips were then applied. A lightly compressive dressing was applied using Webril and an Kulwinder wrap. The patient was then transferred to [facility] and taken to the recovery room in stable condition. Sponge and needle counts were correct.
[2019-03-04] MEDS ORDERED: ONDANSETRON 4 MG/2 ML VIAL IVP PRN (14:47)
[2019-03-04] MEDS ORDERED: MAGNESIUM HYDROXIDE 2,400 MG/10 ML CUP PO PRN (14:47)
[2019-03-04] MEDS ORDERED: NALOXONE 0.4 MG/ML 1 ML VIAL IV PRN (14:47)
[2019-03-04] MEDS ORDERED: HYDROmorphone 0.5 MG/0.5 ML SYRINGE IVP PRN ×3 (14:47)
[2019-03-04] MEDS ORDERED: BISACODYL 10 MG SUPP RECTAL PRN (14:47)
[2019-03-04] MEDS ORDERED: NA PHOS,M-B/NA PHOS,DI-BA 133 ML ENEMA RECTAL PRN (14:47)
--- NOTE | 2019-03-04 15:26 | XR ---
EXAMINATION TYPE: XR knee limited RT DATE OF EXAM: 03/04/2019 COMPARISON: None HISTORY: Evaluation postop abnormality in alignment TECHNIQUE: 2 view right knee FINDINGS: Tibial and femoral components of in place. Postsurgical changes are present. No acute fract ures are evident. IMPRESSION: 1. No acute fractures post right knee replacement.
[2019-03-04 16:09] VITALS: BMI 33.0
[2019-03-04 16:55] LABS: Glucose,Whole Blood 134 mg/dL (75-99)
[2019-03-04] MEDS: PANTOPRAZOLE 40 MG TABLET PO SCH (18:08)
[2019-03-04] MEDS: LACTATED RINGERS 1,000 ML IV SCH (18:17)
[2019-03-04 19:57] LABS: Glucose,Whole Blood 237 mg/dL (75-99)
[2019-03-04] MEDS: SENNOSIDES-DOCUSATE SODIUM 1 EACH TAB PO SCH (20:39)
[2019-03-04] MEDS: METOPROLOL TARTRATE 25 MG TAB PO SCH (20:39)
[2019-03-04] MEDS: MONTELUKAST 5 MG CHEWABLE PO SCH (20:40)
[2019-03-04] MEDS: ceFAZolin IN SWFI 2 GM/20 ML SYRINGE IVP SCH (20:40)
[2019-03-04] MEDS: amLODIPine 5 MG TAB PO SCH (21:35)
[2019-03-04] MEDS: traMADol 50 MG TAB PO PRN (23:46)
[2019-03-05] MEDS: ceFAZolin IN SWFI 2 GM/20 ML SYRINGE IVP SCH (04:17)
[2019-03-05] MEDS: LACTATED RINGERS 1,000 ML IV SCH ×3 (04:27→19:49)
[2019-03-05] MEDS: LEVOTHYROXINE 50 MCG TAB PO SCH (05:31)
[2019-03-05 07:03] LABS: Glucose,Whole Blood 104 mg/dL (75-99)
[2019-03-05 08:08] LABS: Basophils % (A) 0 %; Eosinophils % (A) 0 %; HCT 36.6 % (39.0-53.0); HGB 11.1 gm/dL (13.0-17.5); Hypochromasia Marked; Lymphocytes # (A) 1.7 k/uL (1.0-4.8); Lymphocytes % (A) 11 %; MCH 24.3 pg (25.0-35.0); MCHC 30.2 g/dL (31.0-37.0); MCV 80.3 fL (80.0-100.0); Mean Platelet Volume 7.3; Monocytes # (A) 0.9 k/uL (0-1.0); Monocytes % (A) 6 %; Neutrophils # (A) 12.3 k/uL (1.3-7.7); Neutrophils % (A) 81 %; Platelet Count 358 k/uL (150-450); RBC 4.56 m/uL (4.30-5.90); RDW 15.4 % (11.5-15.5); WBC 15.2 k/uL (3.8-10.6)
[2019-03-05] MEDS: LACTOBACILLUS ACIDOPH & BULGAR 1 EACH PACKET PO SCH (08:14)
[2019-03-05] MEDS: METOPROLOL TARTRATE 25 MG TAB PO SCH ×2 (08:15→20:43)
[2019-03-05] MEDS: traMADol 50 MG TAB PO PRN ×3 (08:15→20:44)
[2019-03-05] MEDS: MULTIVITAMINS, THERA 1 EACH TAB PO SCH (08:15)
[2019-03-05] MEDS: TAMSULOSIN 0.4 MG CAP.ER.24H PO SCH (08:15)
[2019-03-05] MEDS: ATORVASTATIN 40 MG TAB PO SCH (08:15)
[2019-03-05] MEDS: RIVAROXABAN 10 MG TAB PO SCH (08:15)
[2019-03-05] MEDS: LINAGLIPTIN 5 MG TABLET PO SCH (08:16)
[2019-03-05] MEDS: metFORMIN 500 MG TAB PO SCH (08:16)
[2019-03-05] MEDS: MELOXICAM 7.5 MG TAB PO SCH (08:16)
--- NOTE | 2019-03-05 10:15 | P.PN ---
Progress Note - Text 03/05 645am 78-year-old male status post total knee replacement by Dr. Nassar. Patient has an On-Q pump for postop pain control with a VAS of 3. Plan to continue On-Q pump infusion.
[2019-03-05 11:48] LABS: Glucose,Whole Blood 124 mg/dL (75-99)
--- NOTE | 2019-03-05 11:49 | P.CONS ---
History of Present Illness - History of Present Illness 78-year-old male is postoperative for total right knee arthroplasty. Patient states he had the left one done 6 months ago. Patient has a history of hypertension diabetes and coronary artery disease. Patient stable at this time. States he is ambulated. Sitting in chair now without distress Review of Systems Musculoskeletal: right: knee pain Past Medical History Past Medical History: Asthma, Cancer, Diabetes Mellitus, GERD/Reflux, Hearing Disorder / Deafness, Hyperlipidemia, Hypertension, Musculoskeletal Disorder, Osteoarthritis (OA), Thyroid Disorder Additional Past Medical History / Comment(s): HX DIVERTICULITIS, BACK & NECK PAIN, SKIN CANCER, ARTHRITIS WITH PAIN BOTH KNEES, STATES HX OF KIDNEY AND PROSTATE INFECTION., RINGING IN EARS AND 10 % HEARING LOSS., History of Any Multi-Drug Resistant Organisms: None Reported Past Surgical History: Back Surgery, Bowel Resection, Coronary Bypass/CABG, Heart Catheterization, Joint Replacement, Orthopedic Surgery Additional Past Surgical History / Comment(s): BACK SURGERY (1985,1986)., CABG 5 VESSEL 2010)., RIGHT TRIGGER FINGER, RIGHT CARPAL TUNNEL, GANGLION CYST LEFT WRIST.total lt knee 08/30,bypass 2 VESSEL june 30 Past Anesthesia/Blood Transfusion Reactions: No Reported Reaction Additional Past Anesthesia/Blood Transfusion Reaction / Comm: MOM= PONV Past Psychological History: No Psychological Hx Reported Smoking Status: Never smoker Past Alcohol Use History: None Reported Past Drug Use History: None Reported - Past Family History Father Family Medical History: Cancer Additional Family Medical History / Comment(s): PROSTATE & SKIN CANCER Brother(s) Family Medical History: Cancer Medications and Allergies Home Medications Medication Instructions Recorded Confirmed Type Atorvastatin [Lipitor] 40 mg PO QAM 02/26/15 02/21/19 History Esomeprazole Magnesium [NexIUM] 40 mg PO AC-SUPPER 02/26/15 02/21/19 History Metoprolol Tartrate [Lopressor] 25 mg PO BID 02/26/15 02/21/19 History Montelukast Sodium [Singulair] 5 mg PO HS 02/26/15 02/21/19 History Multivitamin [Multiple Vitamins] 1 tab PO DAILY 02/26/15 02/21/19 History Naproxen Sodium [Aleve] 220 mg PO DAILY 02/26/15 03/04/19 History Tamsulosin HCl [Flomax] 0.4 mg PO DAILY 02/26/15 02/21/19 History Aspirin [Adult Low Dose Aspirin EC] 162 mg PO DAILY 04/24/18 02/21/19 History Levothyroxine Sodium [Synthroid] 50 mcg PO DAILY 04/24/18 02/21/19 History amLODIPine BESYLATE [Norvasc] 5 mg PO HS 04/24/18 02/21/19 History L.acidoph,Paracasei, B.lactis 1 cap PO DAILY 08/23/18 02/21/19 History [Probiotic] sitaGLIPtin PHOS/metFORMIN HCL 1 tab PO QAM 08/23/18 02/21/19 History [Janumet 50-500 mg Tablet] Aspirin [Adult Low Dose Aspirin EC] 81 mg PO DAILY #1 tablet. 03/04/19 Rx Rivaroxaban [Xarelto] 10 mg PO DAILY #5 tab 03/04/19 Rx Sennosides-Docusate Sodium 1 tab PO BID #60 tablet 03/04/19 Rx [Senokot-S] traMADol HCL [Ultram] 50 mg PO Q6HR PRN #28 tab 03/04/19 Rx Allergies Allergy/AdvReac Type Severity Reaction Status Date / Time codeine Allergy Hallucinati Verified 03/04/19 11:03 ons lisinopril Allergy Cough Verified 03/04/19 11:03 Sulfa (Sulfonamide AdvReac Nausea & Verified 03/04/19 11:03 Antibiotics) Vomiting tape Allergy Rash/Hives, Uncoded 03/04/19 11:03 states "paper tape is ok" Physical Exam Vitals: Vital Signs Temp Pulse Resp BP Pulse Ox 03/05/19 07:48 97.3 F L 68 16 133/68 95 03/05/19 01:25 97.9 F 76 15 117/61 97 03/04/19 19:16 97.3 F L 90 15 111/66 98 03/04/19 17:34 83 114/61 95 03/04/19 17:18 78 118/66 94 L 03/04/19 17:03 78 122/68 95 03/04/19 16:48 76 122/69 96 03/04/19 16:33 81 121/71 94 L 03/04/19 16:18 77 118/69 94 L 03/04/19 16:03 72 128/67 98 03/04/19 15:48 97.5 F L 81 122/66 91 L 03/04/19 15:30 79 18 127/61 93 L 03/04/19 15:15 78 18 129/63 93 L 03/04/19 15:00 77 18 123/58 96 03/04/19 14:41 98.5 F 84 16 135/62 100 Intake and Output 03/04/19 03/05/19 03/05/19 22:59 06:59 14:59 Intake Total 300 1200 Output Total 100 Balance 300 1100 Intake: IV 300 Intake, IV Titration 1000 Amount Lactated Ringers 1,000 ml 1000 @ 100 mls/hr IV .Q10H MADHU Rx#:[id number] Oral 200 Output: Urine 100 Other: # Voids 1 1 - Constitutional General appearance: mild distress - EENT Eyes: PERRLA Ears: bilateral: normal - Neck Neck: normal ROM - Respiratory Respiratory: bilateral: CTA - Cardiovascular Rhythm: regular - Gastrointestinal General gastrointestinal: soft - Integumentary Integumentary: normal - Neurologic Neurologic: CNII-XII intact - Musculoskeletal Ambulating with walker - Psychiatric Psychiatric: A&O x's 3, appropriate affect, intact judgment & insight Results CBC & Chem 7: 03/05/19 07:04 Labs: Abnormal Lab Results - Last 24 Hours (Table) 03/04/19 03/04/19 03/05/19 Range/Units 16:44 19:56 06:59 WBC (3.8-10.6) k/uL Hgb (13.0-17.5) gm/dL Hct (39.0-53.0) % MCH (25.0-35.0) pg MCHC (31.0-37.0) g/dL Neutrophils # (1.3-7.7) k/uL POC Glucose (mg/dL) 134 H 237 H 104 H (75-99) mg/dL 03/05/19 Range/Units 07:04 WBC 15.2 H (3.8-10.6) k/uL Hgb 11.1 L (13.0-17.5) gm/dL Hct 36.6 L (39.0-53.0) % MCH 24.3 L (25.0-35.0) pg MCHC 30.2 L (31.0-37.0) g/dL Neutrophils # 12.3 H (1.3-7.7) k/uL POC Glucose (mg/dL) (75-99) mg/dL Assessment and Plan Plan: Assessment Total right knee arthroplasty osteoarthritis right knee History of coronary disease with bypass History of hypertension Diabetes type 2 Hypothyroidism BPH GERD Hyperlipidemia Plan We'll monitor blood pressure and diabetes Patient stable at this time
--- NOTE | 2019-03-05 12:01 | P.DS ---
Providers Expected date of discharge: 03/05/19 Attending physician: Jason Nassar Consults: 03/04/19 14:47 Consult Physician Routine Consulting Provider: David Thurston Consult Reason/Comments: Medical management Do you want consulting provider notified?: Yes Primary care physician: David Thurston - Discharge Diagnosis(es) (1) Diabetes type 2, controlled Current Visit: Yes Status: Acute (2) Osteoarthritis of right knee Current Visit: Yes Status: Acute (3) S/P total knee arthroplasty Current Visit: Yes Status: Acute (4) GERD (gastroesophageal reflux disease) Current Visit: No Status: Acute (5) History of heart bypass surgery Current Visit: No Status: Acute (6) Hypertension Current Visit: No Status: Acute Hospital Course: This is a 78-year-old male who was last seen with complaint of continued right knee pain. The patient has a known history of degenerative arthritis of the right knee and presents to discuss surgical options. Past HISTORY includes asthma, hypertension, type 2 diabetes, GERD and history of cancer. After discussion and consideration the patient elects to proceed with total right knee arthroplasty. The patient is seen preoperatively by Dr. Thurston and cleared for surgery. The patient is admitted to [facility] for total right knee arthroplasty. The procedures performed without complication or sequelae. Patient is doing well postoperatively. Vital signs are stable at discharge. Labs are stable at discharge. His glucose levels are under fairly good control. Blood pressure is stable. The patient is ambulating well with walker with minimal assistance. The patient is discharged to home on postop day #1 pending medical clearance. Please see orders and refer to the [facility] rec for accurate list of medications. Patient Condition at Discharge: Good Plan - Discharge Summary Discharge Rx Participant: No New Discharge Prescriptions: New Aspirin [Adult Low Dose Aspirin EC] 81 mg PO DAILY #1 tablet. Sennosides-Docusate Sodium [Senokot-S] 1 tab PO BID #60 tablet traMADol HCL [Ultram] 50 mg PO Q6HR PRN #28 tab PRN Reason: Pain Rivaroxaban [Xarelto] 10 mg PO DAILY #5 tab No Action Naproxen Sodium [Aleve] 220 mg PO DAILY Multivitamin [Multiple Vitamins] 1 tab PO DAILY Esomeprazole Magnesium [NexIUM] 40 mg PO AC-SUPPER Montelukast Sodium [Singulair] 5 mg PO HS Tamsulosin HCl [Flomax] 0.4 mg PO DAILY Metoprolol Tartrate [Lopressor] 25 mg PO BID Atorvastatin [Lipitor] 40 mg PO QAM Levothyroxine Sodium [Synthroid] 50 mcg PO DAILY Aspirin [Adult Low Dose Aspirin EC] 162 mg PO DAILY amLODIPine BESYLATE [Norvasc] 5 mg PO HS L.acidoph,Paracasei, B.lactis [Probiotic] 1 cap PO DAILY sitaGLIPtin PHOS/metFORMIN HCL [Janumet 50-500 mg Tablet] 1 tab PO QAM Discharge Medication List Atorvastatin [Lipitor] 40 mg PO QAM 02/26/15 [History] Esomeprazole Magnesium [NexIUM] 40 mg PO AC-SUPPER 02/26/15 [History] Metoprolol Tartrate [Lopressor] 25 mg PO BID 02/26/15 [History] Montelukast Sodium [Singulair] 5 mg PO HS 02/26/15 [History] Multivitamin [Multiple Vitamins] 1 tab PO DAILY 02/26/15 [History] Naproxen Sodium [Aleve] 220 mg PO DAILY 02/26/15 [History] Tamsulosin HCl [Flomax] 0.4 mg PO DAILY 02/26/15 [History] Aspirin [Adult Low Dose Aspirin EC] 162 mg PO DAILY 04/24/18 [History] Levothyroxine Sodium [Synthroid] 50 mcg PO DAILY 04/24/18 [History] amLODIPine BESYLATE [Norvasc] 5 mg PO HS 04/24/18 [History] L.acidoph,Paracasei, B.lactis [Probiotic] 1 cap PO DAILY 08/23/18 [History] sitaGLIPtin PHOS/metFORMIN HCL [Janumet 50-500 mg Tablet] 1 tab PO QAM 08/23/18 [History] Aspirin [Adult Low Dose Aspirin EC] 81 mg PO DAILY #1 tablet. 03/04/19 [Rx] Rivaroxaban [Xarelto] 10 mg PO DAILY #5 tab 03/04/19 [Rx] Sennosides-Docusate Sodium [Senokot-S] 1 tab PO BID #60 tablet 03/04/19 [Rx] traMADol HCL [Ultram] 50 mg PO Q6HR PRN #28 tab 03/04/19 [Rx] Follow up Appointment(s)/Referral(s): Parisa Lu, ABEL [PHYSICIAN RN BIRTHING] - 05/06/19 1:45 pm David Thurston MD [Primary Care Provider] - 1 Week [facility] Visiting Nurse, [NON-STAFF] - As Needed Activity/Diet/Wound Care/Special Instructions: May bear wt as tolerated. May shower if no drainage from incision. Discharge Disposition: HOME WITH HOME HEALTH SERVICES
[2019-03-05] MEDS: hydrOXYzine PAMOATE 25 MG CAP PO PRN ×2 (14:48→20:43)
[2019-03-05 16:46] LABS: Glucose,Whole Blood 112 mg/dL (75-99)
[2019-03-05] MEDS: PANTOPRAZOLE 40 MG TABLET PO SCH (18:14)
[2019-03-05] MEDS: SENNOSIDES-DOCUSATE SODIUM 1 EACH TAB PO SCH (20:43)
[2019-03-05] MEDS: MONTELUKAST 5 MG CHEWABLE PO SCH (20:43)
[2019-03-05] MEDS: amLODIPine 5 MG TAB PO SCH (20:43)
[2019-03-05 20:47] LABS: Glucose,Whole Blood 122 mg/dL (75-99)
[2019-03-06] MEDS: LEVOTHYROXINE 50 MCG TAB PO SCH (05:49)
[2019-03-06 07:15] LABS: Glucose,Whole Blood 100 mg/dL (75-99)
[2019-03-06] MEDS: LINAGLIPTIN 5 MG TABLET PO SCH (08:23)
[2019-03-06] MEDS: TAMSULOSIN 0.4 MG CAP.ER.24H PO SCH (08:23)
[2019-03-06] MEDS: RIVAROXABAN 10 MG TAB PO SCH (08:23)
[2019-03-06] MEDS: METOPROLOL TARTRATE 25 MG TAB PO SCH (08:24)
[2019-03-06] MEDS: ATORVASTATIN 40 MG TAB PO SCH (08:24)
[2019-03-06] MEDS: traMADol 50 MG TAB PO PRN (08:24)
[2019-03-06] MEDS: metFORMIN 500 MG TAB PO SCH (08:24)
[2019-03-06] MEDS: MELOXICAM 7.5 MG TAB PO SCH (08:25)
[2019-03-06] MEDS: LACTOBACILLUS ACIDOPH & BULGAR 1 EACH PACKET PO SCH (08:25)
[2019-03-06] MEDS: hydrOXYzine PAMOATE 25 MG CAP PO PRN (08:25)
[2019-03-06] MEDS: MULTIVITAMINS, THERA 1 EACH TAB PO SCH (08:25)
--- NOTE | 2019-03-06 08:44 | P.PN ---
Progress Note - Text Progress Note Date: 03/06/19 This is a 70-year-old male who is postoperative day #2 status post total right knee arthroplasty. He has no new complaints or concerns today. He did have some pain management issues last evening. Discharge was held. He is stable from an orthopedic standpoint. We're planning possible discharge to home later today. Exam: Exam of the right lower extremity reveals that his dressing is clean, dry and intact. He has full foot and ankle motion without difficulty or pain. Neurovascular status to the lower extremities intact. Assessment: Status post total right knee arthroplasty. Multiple medical comorbidities including diabetes mellitus type 2, hypertension, history of cancer, history of heart disease. Plan: We are planning discharge to home today if cleared medically.
[2019-03-06 11:09] LABS: Glucose,Whole Blood 105 mg/dL (75-99)
--- NOTE | 2019-03-06 11:51 | P.PN ---
Subjective Patient stated last night he had fever and complaints of chills this morning has occasional cough ordered chest x-ray and urinalysis Objective - Vital Signs Vital signs: Vital Signs Temp 99 F 03/06/19 07:00 Pulse 83 03/06/19 07:00 Resp 20 03/06/19 07:00 BP 158/75 03/06/19 07:00 Pulse Ox 94 L 03/06/19 07:00 Intake & Output 03/05/19 03/06/19 03/06/19 18:59 06:59 18:59 Intake Total 240 Output Total 600 Balance -360 Intake: Oral 240 Output: Urine 600 Other: Voiding Method Urinal # Voids 2 - Constitutional General appearance: Present: mild distress - EENT Eyes: Present: PERRLA Ears: bilateral: normal - Neck Neck: Present: normal ROM - Respiratory Respiratory: bilateral: CTA - Cardiovascular Rhythm: regular - Gastrointestinal General gastrointestinal: Present: soft - Integumentary Integumentary: Present: normal - Neurologic Neurologic: Present: CNII-XII intact - Psychiatric Psychiatric: Present: A&O x's 3, appropriate affect, intact judgment & insight - Labs CBC & Chem 7: 03/05/19 07:04 Labs: Abnormal Lab Results - Last 24 Hours (Table) 03/05/19 03/05/19 03/06/19 Range/Units 16:41 20:36 07:13 POC Glucose (mg/dL) 112 H 122 H 100 H (75-99) mg/dL 03/06/19 Range/Units 11:05 POC Glucose (mg/dL) 105 H (75-99) mg/dL Assessment and Plan Plan: Assessment Post total right knee arthroplasty History of coronary disease with bypass History of hypertension Diabetes type 2 Hypothyroid BPH GERD Hyperlipidemia Fever and chills acute Plan Check chest x-ray and urinalysis If negative medical cleared for discharge
--- NOTE | 2019-03-06 12:49 | XR ---
EXAMINATION TYPE: XR chest 2V DATE OF EXAM: 03/06/2019 COMPARISON: Prior chest x-ray 10/09/2012 HISTORY: Fever TECHNIQUE: Frontal and lateral views of the chest are obtained. FINDINGS: Patient is post median sternotomy. There are prominent lung volume, increased AP diameter o f the chest which could be indicative of underlying COPD. There is no focal air space opacity, pleura l effusion, or pneumothorax seen. The cardiac silhouette size is stable accounting for rotation towa rds the left. There is thoracic spondylosis. The osseous structures are intact. IMPRESSION: No acute cardiopulmonary process.
[2019-03-06 13:26] VITALS: RESP 16
[2019-03-06 13:59] LABS: Appearance,Urine Clear (Clear); Bilirubin,Urine Negative (Negative); Blood,Urine Negative (Negative); Color,Urine Yellow; Glucose,Urine (UA) Negative (Negative); Ketones,Urine Negative (Negative); Leukocyte Esterase,Urine Negative (Negative); Nitrite,Urine Negative (Negative); Protein,Urine Negative (Negative); Specific Gravity,Urine 1.015 (1.001-1.035); Urobilinogen,Urine <2.0 mg/dL (<2.0)
[2019-03-06] MEDS ORDERED: HYDROmorphone 2 MG TAB PO PRN ×3 (14:36→14:37)
[2019-03-06 15:21] VITALS: BP 148/75; PULSE 80; TEMP 98.4
== END 2019-03-06 16:25 | disposition home health service (06) ==
LOC: OR 10:54 → EDSTATUS 12:30 → 4SSUR 15:23 → OR 03-06 16:25
PROVIDERS: ATTEND Orthopaedic Surgery
DX: M17.11 Unilateral primary osteoarthritis, right knee (principal); M21.161 Varus deformity, not elsewhere classified, right knee; I11.9 Hypertensive heart disease without heart failure; I25.10 Atherosclerotic heart disease of native coronary artery without angina pectoris; E03.9 Hypothyroidism, unspecified; E78.5 Hyperlipidemia, unspecified; E78.00 Pure hypercholesterolemia, unspecified; E11.9 Type 2 diabetes mellitus without complications; H91.90 Unspecified hearing loss, unspecified ear; I25.2 Old myocardial infarction; J45.909 Unspecified asthma, uncomplicated; K21.9 Gastro-esophageal reflux disease without esophagitis; Z85.828 Personal history of other malignant neoplasm of skin; Z85.46 Personal history of malignant neoplasm of prostate; Z95.1 Presence of aortocoronary bypass graft; Z96.652 Presence of left artificial knee joint; Z98.61 Coronary angioplasty status; Z79.1 Long term (current) use of non-steroidal anti-inflammatories (NSAID); Z79.82 Long term (current) use of aspirin; Z79.3 Long term (current) use of hormonal contraceptives; Z79.899 Other long term (current) drug therapy; Z88.1 Allergy status to other antibiotic agents; Z88.5 Allergy status to narcotic agent; Z88.2 Allergy status to sulfonamides; Z88.8 Allergy status to other drugs, medicaments and biological substances; Z91.048 Other nonmedicinal substance allergy status
CPT/HCPCS: 97161; 85025; 81003; 88300; 73560; 71046; 27447; C1776; C1772; J2250 ×2; J0171; J1200; J1100; J2405; J0690 ×3; J3010; J1885; J2795; J0735

== ENCOUNTER → 2019-03-28 | Outpatient (CLI) | payer MEDICARE ==
--- NOTE | 2019-03-28 13:07 | US ---
EXAMINATION TYPE: US venous doppler duplex LE RT DATE OF EXAM: 03/28/2019 12:46 PM COMPARISON: NONE CLINICAL HISTORY: M25.561 PAIN RTKNEE,M17.11 OSTEOARTHRITIS. Right leg pain and swelling x 4 days, ri ght knee replacement February 2019 SIDE PERFORMED: Right TECHNIQUE: The lower extremity deep venous system is examined utilizing real time linear array sonog ping with graded compression, doppler sonography and color-flow sonography. VESSELS IMAGED: External Iliac Vein (EIV) Common Femoral Vein Deep Femoral Vein Greater Saphenous Vein * Femoral Vein Popliteal Vein Small Saphenous Vein * Proximal Calf Veins (* superficial vessels) Right Leg: Appears negative for DVT IMPRESSION: 1. No diagnostic evidence of DVT.
== END | disposition home or self-care (01) ==
LOC: RADUSWWP 11:58
PROVIDERS: ATTEND Orthopaedic Surgery
DX: M79.661 Pain in right lower leg (principal); M17.11 Unilateral primary osteoarthritis, right knee; Z47.1 Aftercare following joint replacement surgery

== ENCOUNTER 2019-03-30 16:25 | Inpatient (IN) | payer MEDICARE ==
[2019-03-30] MEDS ORDERED: SODIUM CHLORIDE 0.9% 500 ML 500 ML IV STA (16:33)
--- NOTE | 2019-03-30 16:55 | ED ---
Abdominal Pain HPI <Juan Luis Nesbitt - Last Filed: 03/30/19 18:57> - General Source: patient Mode of arrival: ambulatory Limitations: no limitations <Francheska Hunter - Last Filed: 03/30/19 19:23> - General Chief Complaint: Abdominal Pain Stated Complaint: Abd Pain Time Seen by Provider: 03/30/19 16:33 - History of Present Illness Initial Comments: 78-year-old male past medical history of CAD status post bypass 2 with last being June 2018, type 2 diabetes, hypertension, history of diverticulitis presents today for chief complaint of sharp mid abdominal pain. Patient states that around 8 PM last night he began having sharp mid abdominal pain he denies any radiation he states it comes and goes but has been consistent. He denies any diarrhea or fevers. He states he has had vomiting since last night. He states he has vomited throughout the evening including 5 times today with last episode at 4 PM. Patient states there is a brown color to the vomit he denies history of peptic ulcer disease liver disease medical abuse or abuse of NSAIDs. Patient denies any anticoagulation use aside from 2 baby aspirin daily. Patient denies any chest pain source of breath up her extremity paresthesias or jaw pain. Patient states he did have a knee replacement on 03/04/2019. Patient denies history of DVT or pulmonary embolism. Remaining review of system negative.Upon arrival pt appears well, his HR is elevated, no signs of acute distress. (Francheska Hunter) - Related Data Home Medications Medication Instructions Recorded Confirmed Atorvastatin [Lipitor] 40 mg PO QAM 02/26/15 02/21/19 Esomeprazole Magnesium [NexIUM] 40 mg PO AC-SUPPER 02/26/15 02/21/19 Metoprolol Tartrate [Lopressor] 25 mg PO BID 02/26/15 02/21/19 Montelukast Sodium [Singulair] 5 mg PO HS 02/26/15 02/21/19 Multivitamin [Multiple Vitamins] 1 tab PO DAILY 02/26/15 02/21/19 Naproxen Sodium [Aleve] 220 mg PO DAILY 02/26/15 03/04/19 Tamsulosin HCl [Flomax] 0.4 mg PO DAILY 02/26/15 02/21/19 Aspirin [Adult Low Dose Aspirin EC] 162 mg PO DAILY 04/24/18 02/21/19 Levothyroxine Sodium [Synthroid] 50 mcg PO DAILY 04/24/18 02/21/19 amLODIPine BESYLATE [Norvasc] 5 mg PO HS 04/24/18 02/21/19 Rosa Elena Ayala B.lactis 1 cap PO DAILY 08/23/18 02/21/19 [Probiotic] sitaGLIPtin PHOS/metFORMIN HCL 1 tab PO QAM 08/23/18 02/21/19 [Janumet 50-500 mg Tablet] Previous Rx's Medication Instructions Recorded Aspirin [Adult Low Dose Aspirin EC] 81 mg PO DAILY #1 tablet. 03/04/19 Rivaroxaban [Xarelto] 10 mg PO DAILY #5 tab 03/04/19 Sennosides-Docusate Sodium 1 tab PO BID #60 tablet 03/04/19 [Senokot-S] traMADol HCL [Ultram] 50 mg PO Q6HR PRN #28 tab 03/04/19 Allergies Allergy/AdvReac Type Severity Reaction Status Date / Time codeine Allergy Hallucinati Verified 03/30/19 19:22 ons lisinopril Allergy Cough Verified 03/30/19 19:22 Sulfa (Sulfonamide AdvReac Nausea & Verified 03/30/19 19:22 Antibiotics) Vomiting tape Allergy Rash/Hives, Uncoded 03/30/19 16:30 states "paper tape is ok" Review of Systems ROS Other: All systems not noted in ROS Statement are negative. <Juan Luis Nesbitt - Last Filed: 03/30/19 18:57> ROS Other: All systems not noted in ROS Statement are negative. <Francheska Hunter - Last Filed: 03/30/19 19:23> ROS Statement: Those systems with pertinent positive or pertinent negative responses have been documented in the HPI. 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 Past Anesthesia/Blood Transfusion Reactions: No Reported Reaction Additional Past Anesthesia/Blood Transfusion Reaction / Comment(s): MOM= PONV Past Psychological History: No Psychological Hx Reported Smoking Status: Never smoker Past Alcohol Use History: None Reported Past Drug Use History: None Reported - Past Family History Father Family Medical History: Cancer Additional Family Medical History / Comment(s): PROSTATE & SKIN CANCER Brother(s) Family Medical History: Cancer <Francheska Hunter - Last Filed: 03/30/19 19:23> General Exam Limitations: no limitations <Francheska Hunter - Last Filed: 03/30/19 19:23> - General Exam Comments Initial Comments: General: The patient is awake and alert, in no distress, and does not appear acutely ill. Eye: +3 mm pupils are equal, round and reactive to light, extra-ocular movements are intact. No nystagmus. There is normal conjunctiva bilaterally. No signs of icterus. Ears, nose, mouth and throat: There are moist mucous membranes and no oral lesions. Neck: The neck is supple, there is no tenderness or JVD. Cardiovascular: There is a regular rate and rhythm. No murmur, rub or gallop is appreciated. Respiratory: Lungs are clear to auscultation, respirations are non-labored, breath sounds are equal. No wheezes, stridor, rales, or rhonchi. Gastrointestinal: Soft, non-distended, mid abdomen tenderness without rigidity, masses or organomegaly noted. There is no rebound or guarding present. No CVA tenderness. Bowel sounds are unremarkable. Musculoskeletal: Normal ROM, no tenderness. Strength 5/5. Sensation intact. Pulses equal bilaterally 2+. Neurological: A&O x 3. CN II-XII intact, There are no obvious motor or sensory deficits. Coordination appears grossly intact. Speech is normal. Skin: Skin is warm and dry and no rashes or lesions are noted. Psychiatric: Cooperative, appropriate mood & affect, normal judgment. (Francheska Hunetr) Course Vital Signs 03/30/19 16:26 Temperature 99.2 F Pulse Rate 111 H Respiratory 18 Rate Blood Pressure 168/88 O2 Sat by Pulse 94 L Oximetry Medical Decision Making - Lab Data Result diagrams: 03/30/19 17:10 03/30/19 17:10 <Juan Luis Nesbitt - Last Filed: 03/30/19 18:57> - Lab Data Result diagrams: 03/30/19 17:10 03/30/19 17:10 <Francheska Hunter - Last Filed: 03/30/19 19:23> - Medical Decision Making Vital decision making; patient is 78-year-old male to complaint of abdominal pain. The patient's CAT scan shows evidence of a high-grade partial to complete small bowel obstruction with transition point noted in the left paracentral abdomen in the left lower quadrant. Small bowel is only mildly dilated at 3.4 cm fluid filled with air fluid levels. As read by Dr. connelly The patient's case discussed with on-call general surgeon Dr. De La Paz. Patient be admitted to his service with medical clearance by Dr. Logan (Juan Luis Nesbitt) 78-year-old male presenting for mid abdominal pain and vomiting. Patient states it has been brown vomit. Patient given Protonix concern for upper GI bleed. Patient did have bowel movement 3:30. He states it was normal. On CT of the abdomen and pelvis revealed findings consistent with a possible partial or complete obstruction. NG tube was placed. Chest x-ray will be obtained post placement. Patient states he does any pain medications at this time. Patient was placed on maintenance fluids. Patient is given IV fluid bolus in the emergency department. Patient does have mild leukocytosis. There is a hemoglobin of 12.8. This appears to both patient's normal, patient appears slightly heme concentrated. I discussed the case attending provider Dr. Nesbitt, he called Dr. Ariza accepting admitting provider AND Dr. Hollins consulted surgeon. After discussing the findings with patient and he is agreeable to admission. Patient was admitted in stable condition appearing well and transferred to the floor (Francheska Hunter) - Lab Data Lab Results 03/30/19 03/30/19 03/30/19 Range/Units 17:10 17:10 17:10 WBC 12.5 H (3.8-10.6) k/uL RBC 5.32 (4.30-5.90) m/uL Hgb 12.8 L (13.0-17.5) gm/dL Hct 42.0 (39.0-53.0) % MCV 78.9 L (80.0-100.0) fL MCH 24.1 L (25.0-35.0) pg MCHC 30.6 L (31.0-37.0) g/dL RDW 16.2 H (11.5-15.5) % Plt Count 558 H (150-450) k/uL Neutrophils % 81 % Lymphocytes % 11 % Monocytes % 5 % Eosinophils % 2 % Basophils % 0 % Neutrophils # 10.1 H (1.3-7.7) k/uL Lymphocytes # 1.3 (1.0-4.8) k/uL Monocytes # 0.7 (0-1.0) k/uL Eosinophils # 0.3 (0-0.7) k/uL Basophils # 0.0 (0-0.2) k/uL Hypochromasia Slight Anisocytosis Slight Microcytosis Slight PT (9.0-12.0) sec INR (<1.2) APTT (22.0-30.0) sec Sodium 137 (137-145) mmol/L Potassium 4.2 (3.5-5.1) mmol/L Chloride 102 (98-107) mmol/L Carbon Dioxide 27 (22-30) mmol/L Anion Gap 8 mmol/L BUN 18 (9-20) mg/dL Creatinine 0.88 (0.66-1.25) mg/dL Est GFR (CKD-EPI)AfAm >90 (>60 ml/min/1.73 sqM) Est GFR (CKD-EPI)NonAf 83 (>60 ml/min/1.73 sqM) Glucose 127 H (74-99) mg/dL Plasma Lactic Acid Garth 1.2 (0.7-2.0) mmol/L Calcium 10.1 (8.4-10.2) mg/dL Total Bilirubin 0.9 (0.2-1.3) mg/dL AST 21 (17-59) U/L ALT 25 (21-72) U/L Alkaline Phosphatase 106 (38-126) U/L Troponin I (0.000-0.034) ng/mL Total Protein 7.1 (6.3-8.2) g/dL Albumin 4.2 (3.5-5.0) g/dL Amylase 35 (30-110) U/L Lipase 49 (23-300) U/L Urine Color Urine Appearance (Clear) Urine pH (5.0-8.0) Ur Specific [place] (1.001-1.035) Urine Protein (Negative) Urine Glucose (UA) (Negative) Urine Ketones (Negative) Urine Blood (Negative) Urine Nitrite (Negative) Urine Bilirubin (Negative) Urine Urobilinogen (<2.0) mg/dL Ur Leukocyte Esterase (Negative) 03/30/19 03/30/19 03/30/19 Range/Units 17:10 17:10 18:35 WBC (3.8-10.6) k/uL RBC (4.30-5.90) m/uL Hgb (13.0-17.5) gm/dL Hct (39.0-53.0) % MCV (80.0-100.0) fL MCH (25.0-35.0) pg MCHC (31.0-37.0) g/dL RDW (11.5-15.5) % Plt Count (150-450) k/uL Neutrophils % % Lymphocytes % % Monocytes % % Eosinophils % % Basophils % % Neutrophils # (1.3-7.7) k/uL Lymphocytes # (1.0-4.8) k/uL Monocytes # (0-1.0) k/uL Eosinophils # (0-0.7) k/uL Basophils # (0-0.2) k/uL Hypochromasia Anisocytosis Microcytosis PT 10.4 (9.0-12.0) sec INR 1.0 (<1.2) APTT 23.9 (22.0-30.0) sec Sodium (137-145) mmol/L Potassium (3.5-5.1) mmol/L Chloride (98-107) mmol/L Carbon Dioxide (22-30) mmol/L Anion Gap mmol/L BUN (9-20) mg/dL Creatinine (0.66-1.25) mg/dL Est GFR (CKD-EPI)AfAm (>60 ml/min/1.73 sqM) Est GFR (CKD-EPI)NonAf (>60 ml/min/1.73 sqM) Glucose (74-99) mg/dL Plasma Lactic Acid Garth (0.7-2.0) mmol/L Calcium (8.4-10.2) mg/dL Total Bilirubin (0.2-1.3) mg/dL AST (17-59) U/L ALT (21-72) U/L Alkaline Phosphatase (38-126) U/L Troponin I <0.012 (0.000-0.034) ng/mL Total Protein (6.3-8.2) g/dL Albumin (3.5-5.0) g/dL Amylase (30-110) U/L Lipase (23-300) U/L Urine Color Yellow Urine Appearance Clear (Clear) Urine pH 6.5 (5.0-8.0) Ur Specific [place] >1.050 H (1.001-1.035) Urine Protein Trace H (Negative) Urine Glucose (UA) Negative (Negative) Urine Ketones 1+ H (Negative) Urine Blood Negative (Negative) Urine Nitrite Negative (Negative) Urine Bilirubin Negative (Negative) Urine Urobilinogen <2.0 (<2.0) mg/dL Ur Leukocyte Esterase Negative (Negative) Disposition <Juan Luis Nesbitt - Last Filed: 03/30/19 18:57> Time of Disposition: 19:23 Decision to Admit Reason: Admit from EC Decision Date: 03/30/19 Decision Time: 19:23 <Francheska Hunter - Last Filed: 03/30/19 19:23> Clinical Impression: Small bowel obstruction Disposition: ADMITTED IP TO THIS [facility] Condition: Stable
[2019-03-30] MEDS ORDERED: PANTOPRAZOLE 40 MG/10 ML VIAL IVP STA (16:59)
[2019-03-30 17:27] LABS: Anisocytosis Slight; Basophils % (A) 0 %; Eosinophils # (A) 0.3 k/uL (0-0.7); Eosinophils % (A) 2 %; HGB 12.8 gm/dL (13.0-17.5); Hypochromasia Slight; Lymphocytes # (A) 1.3 k/uL (1.0-4.8); Lymphocytes % (A) 11 %; MCH 24.1 pg (25.0-35.0); MCHC 30.6 g/dL (31.0-37.0); MCV 78.9 fL (80.0-100.0); Mean Platelet Volume 6.8; Microcytosis Slight; Monocytes # (A) 0.7 k/uL (0-1.0); Monocytes % (A) 5 %; Neutrophils # (A) 10.1 k/uL (1.3-7.7); Neutrophils % (A) 81 %; Platelet Count 558 k/uL (150-450); RBC 5.32 m/uL (4.30-5.90); RDW 16.2 % (11.5-15.5); WBC 12.5 k/uL (3.8-10.6)
[2019-03-30 17:37] LABS: ALT 25 U/L (21-72); AST 21 U/L (17-59); Albumin 4.2 g/dL (3.5-5.0); Alkaline Phosphatase 106 U/L (38-126); Amylase 35 U/L (30-110); Anion Gap 8 mmol/L; Blood Urea Nitrogen 18 mg/dL (9-20); Calcium 10.1 mg/dL (8.4-10.2); Carbon Dioxide 27 mmol/L (22-30); Chloride 102 mmol/L (98-107); Glucose 127 mg/dL (74-99); Lipase 49 U/L (23-300); Partial Thromboplastin Time 23.9 sec (22.0-30.0); Potassium 4.2 mmol/L (3.5-5.1); Prothrombin Time 10.4 sec (9.0-12.0); Sodium 137 mmol/L (137-145); Total Bilirubin 0.9 mg/dL (0.2-1.3); Total Protein 7.1 g/dL (6.3-8.2)
[2019-03-30] MEDS ORDERED: ONDANSETRON 4 MG/2 ML VIAL IVP STA (17:44)
[2019-03-30] MEDS ORDERED: SODIUM CHLORIDE 0.9% 500 ML 500 ML IV ONE (18:25)
--- NOTE | 2019-03-30 18:27 | CT ---
EXAMINATION TYPE: CT abdomen pelvis w con DATE OF EXAM: 03/30/2019 COMPARISON: 05/10/2013 HISTORY: Abdominal pain and vomiting CT DLP: 1111.8 mGycm Automated exposure control for dose reduction was used. TECHNIQUE: Helical acquisition of images was performed from the lung bases through the pelvis. CONTRAST: Performed without Oral Contrast and with IV Contrast, patient injected with 100 mL of Isovue 300. FINDINGS: LUNG BASES: Minimal bibasilar subsegmental dependent atelectasis is present. LIVER/GB: The gallbladder is elongated and folded upon itself without surrounding fat stranding. No r adiopaque calculi. The liver is unremarkable in enhancement and morphology. PANCREAS: No significant abnormality is seen. SPLEEN: Small splenule is incidentally noted spleen is unremarkable. ADRENALS: No significant abnormality is seen. KIDNEYS: Bilateral renal cysts measure up to 5.6 cm on the right. No hydronephrosis of either kidney. Nonobstructing right lower pole renal calculus measures 9 mm. FREE AIR: No free air is visualized. REPRODUCTIVE ORGANS: Prostate gland is heterogenous containing central zone calcifications. URINARY BLADDER: Largely decompressed and incompletely evaluated. ADENOPATHY: No greater than 1 cm short axis lymph nodes are seen in the abdomen or pelvis. OSSEOUS STRUCTURES: Moderate degenerative changes of the spine are noted. BOWEL: There is a small hiatal hernia. Numerous loops of small bowel are dilated and fluid-filled wi th air-fluid levels clustered in the left upper abdomen and left lower quadrant. There is a transitio n point noted in the left lower quadrant with decompressed distal small bowel on image 42 through 47. No dilated large bowel. Few scattered colonic diverticula are seen without pericolic fat stranding. Sigmoid anastomotic site is noted. OTHER: Moderate atherosclerosis is seen of the abdominal aorta and its branches. IMPRESSION: HIGH-GRADE PARTIAL TO COMPLETE SMALL BOWEL OBSTRUCTION WITH TRANSITION POINT NOTED IN THE LEFT PARACE NTRAL ABDOMEN IN THE LEFT LOWER QUADRANT. SMALL BOWEL IS ONLY MILDLY DILATED UP TO 3.4 CM BUT FLUID-F ILLED WITH AIR-FLUID LEVELS.
[2019-03-30 18:58] LABS: Appearance,Urine Clear (Clear); Bilirubin,Urine Negative (Negative); Blood,Urine Negative (Negative); Color,Urine Yellow; Glucose,Urine (UA) Negative (Negative); Ketones,Urine 1+ (Negative); Leukocyte Esterase,Urine Negative (Negative); Nitrite,Urine Negative (Negative); PH, Urine 6.5 (5.0-8.0); Protein,Urine Trace (Negative); Urobilinogen,Urine <2.0 mg/dL (<2.0)
[2019-03-30] MEDS ORDERED: NALOXONE 0.4 MG/ML 1 ML VIAL IV PRN (19:06)
[2019-03-30 19:10] LABS: Specific Gravity,Urine >1.050 (1.001-1.035)
[2019-03-30] MEDS: SODIUM CHLORIDE 0.9% 1,000 ML IV SCH (19:54)
--- NOTE | 2019-03-30 20:15 | XR ---
EXAMINATION TYPE: XR chest 1V DATE OF EXAM: 03/30/2019 COMPARISON: 03/06/2019 HISTORY: NG tube placement TECHNIQUE: Single frontal view of the chest is obtained. FINDINGS: Strand-like retrocardiac airspace disease is noted. Although the most distal aspect of the enteric tube is not clearly identified given underpenetration it appears to terminate at the gastroe sophageal junction and advancement of approximately 5 cm is recommended. Post CABG changes are seen o f the enlarged cardiac mediastinal silhouette. There are low lung volumes. No acute osseous pathology . IMPRESSION: Although there is suboptimal visualization of the enteric tube distal tip this appears t o terminate at the gastroesophageal junction and advancement of approximately 5 cm is recommended.
[2019-03-30] MEDS ORDERED: MORPHINE SULFATE 2 MG/ML SYRINGE IVP PRN (22:04)
[2019-03-30] MEDS ORDERED: ONDANSETRON 4 MG/2 ML VIAL IVP PRN (22:05)
[2019-03-31] MEDS: SODIUM CHLORIDE 0.9% 1,000 ML IV SCH ×2 (06:00→15:43)
[2019-03-31 07:20] LABS: Glucose,Whole Blood 97 mg/dL (75-99)
[2019-03-31] MEDS: INSULIN ASPART (NovoLOG) 100 UNIT/ML VIAL SQ SCH ×4 (07:26→20:42)
--- NOTE | 2019-03-31 09:45 | P.GSCN ---
History of Present Illness Consult date: 03/31/19 Reason for Consult: Small bowel obstruction History of present illness: 78-year-old male presents to the hospital complaining of mid abdominal pain. Pain is crampy in nature. Pain began Max evening. He did have normal bowel movements up until that point. Numerous episodes of nausea and vomiting. Patient is a history of previous colon resection for polyps and diverticulitis. Denies history of small bowel obstruction. CAT scan performed showing small bowel obstruction. White blood cell count slightly elevated. He feels better t vin. No nausea currently. He is thirsty. He is afebrile. No tachycardia. 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 Past Anesthesia/Blood Transfusion Reactions: No Reported Reaction Additional Past Anesthesia/Blood Transfusion Reaction / Comm: MOM= PONV Past Psychological History: No Psychological Hx Reported Smoking Status: Never smoker Past Alcohol Use History: None Reported Past Drug Use History: None Reported - Past Family History Father Family Medical History: Cancer Additional Family Medical History / Comment(s): PROSTATE & SKIN CANCER Brother(s) Family Medical History: Cancer Medications and Allergies Home Medications Medication Instructions Recorded Confirmed Type Atorvastatin [Lipitor] 40 mg PO QAM 02/26/15 03/30/19 History Esomeprazole Magnesium [NexIUM] 40 mg PO AC-SUPPER 02/26/15 03/30/19 History Metoprolol Tartrate [Lopressor] 25 mg PO BID 02/26/15 03/30/19 History Montelukast Sodium [Singulair] 5 mg PO HS 02/26/15 03/30/19 History Multivitamin [Multiple Vitamins] 1 tab PO DAILY 02/26/15 03/30/19 History Naproxen Sodium [Aleve] 220 mg PO DAILY 02/26/15 03/30/19 History Tamsulosin HCl [Flomax] 0.4 mg PO DAILY 02/26/15 03/30/19 History Levothyroxine Sodium [Synthroid] 50 mcg PO DAILY 04/24/18 03/30/19 History amLODIPine BESYLATE [Norvasc] 5 mg PO HS 04/24/18 03/30/19 History L.acidoph,Paracasei, B.lactis 1 cap PO DAILY 08/23/18 03/30/19 History [Probiotic] sitaGLIPtin PHOS/metFORMIN HCL 1 tab PO QAM 08/23/18 03/30/19 History [Janumet 50-500 mg Tablet] Aspirin [Adult Low Dose Aspirin EC] 81 mg PO DAILY #1 tablet. 03/04/19 03/30/19 Rx Acetaminophen Tab [Tylenol] 1,000 mg PO Q6H 03/30/19 03/30/19 History Allergies Allergy/AdvReac Type Severity Reaction Status Date / Time codeine Allergy Hallucinati Verified 03/30/19 19:22 ons lisinopril Allergy Cough Verified 03/30/19 19:22 Sulfa (Sulfonamide AdvReac Nausea & Verified 03/30/19 19:22 Antibiotics) Vomiting tape Allergy Rash/Hives, Uncoded 03/30/19 16:30 states "paper tape is ok" Surgical - Exam Vital Signs Temp Pulse Resp BP Pulse Ox 99.2 F 111 H 18 168/88 94 L 03/30/19 16:26 03/30/19 16:26 03/30/19 16:26 03/30/19 16:26 03/30/19 16:26 Physical exam: General: Well-developed, well-nourished HEENT: Normocephalic, sclerae nonicteric Abdomen: Mild distention, mild mid abdominal tenderness Extremities: No edema Neuro: Alert and oriented Results - Labs 03/30/19 17:10 03/30/19 17:10 Abnormal Lab Results - Last 24 Hours (Table) 03/30/19 03/30/19 03/30/19 Range/Units 17:10 17:10 18:35 WBC 12.5 H (3.8-10.6) k/uL Hgb 12.8 L (13.0-17.5) gm/dL MCV 78.9 L (80.0-100.0) fL MCH 24.1 L (25.0-35.0) pg MCHC 30.6 L (31.0-37.0) g/dL RDW 16.2 H (11.5-15.5) % Plt Count 558 H (150-450) k/uL Neutrophils # 10.1 H (1.3-7.7) k/uL Glucose 127 H (74-99) mg/dL Ur Specific [place] >1.050 H (1.001-1.035) Urine Protein Trace H (Negative) Urine Ketones 1+ H (Negative) Diabetes panel 03/30/19 Range/Units 17:10 Sodium 137 (137-145) mmol/L Potassium 4.2 (3.5-5.1) mmol/L Chloride 102 (98-107) mmol/L Carbon Dioxide 27 (22-30) mmol/L BUN 18 (9-20) mg/dL Creatinine 0.88 (0.66-1.25) mg/dL Glucose 127 H (74-99) mg/dL Calcium 10.1 (8.4-10.2) mg/dL AST 21 (17-59) U/L ALT 25 (21-72) U/L Alkaline Phosphatase 106 (38-126) U/L Total Protein 7.1 (6.3-8.2) g/dL Albumin 4.2 (3.5-5.0) g/dL Calcium panel 03/30/19 Range/Units 17:10 Calcium 10.1 (8.4-10.2) mg/dL Albumin 4.2 (3.5-5.0) g/dL Pituitary panel 03/30/19 Range/Units 17:10 Sodium 137 (137-145) mmol/L Potassium 4.2 (3.5-5.1) mmol/L Chloride 102 (98-107) mmol/L Carbon Dioxide 27 (22-30) mmol/L BUN 18 (9-20) mg/dL Creatinine 0.88 (0.66-1.25) mg/dL Glucose 127 H (74-99) mg/dL Calcium 10.1 (8.4-10.2) mg/dL Adrenal panel 03/30/19 Range/Units 17:10 Sodium 137 (137-145) mmol/L Potassium 4.2 (3.5-5.1) mmol/L Chloride 102 (98-107) mmol/L Carbon Dioxide 27 (22-30) mmol/L BUN 18 (9-20) mg/dL Creatinine 0.88 (0.66-1.25) mg/dL Glucose 127 H (74-99) mg/dL Calcium 10.1 (8.4-10.2) mg/dL Total Bilirubin 0.9 (0.2-1.3) mg/dL AST 21 (17-59) U/L ALT 25 (21-72) U/L Alkaline Phosphatase 106 (38-126) U/L Total Protein 7.1 (6.3-8.2) g/dL Albumin 4.2 (3.5-5.0) g/dL Assessment and Plan (1) Small bowel obstruction Narrative/Plan: Patient with small bowel obstruction likely on the basis of adhesions. Continue nasogastric tube to suction. May have ice chips and popsicles. Ambulate. Recheck labs and x-rays tomorrow. Current Visit: Yes Status: Acute Code(s): K56.609 - UNSP INTESTNL OBST, UNSP TO PARTIAL VERSUS COMPLETE OBST SNOMED Code(s): 920033433
--- NOTE | 2019-03-31 11:40 | P.HPIM ---
History of Present Illness H&P Date: 03/31/19 Chief Complaint: Abdominal pain with nausea and vomiting for 2 days Mr. Beach is a 78-year-old male with a past medical history of coronary artery disease status post CABG 2, R does not is, hypertension, diverticulitis coming into the hospital with a chief complaint of abdominal pain for the past couple of days. Patient states that he started to have abdominal pain since Monday, then he started to throw up multiple times and so came into the hospital yesterday. Patient's last bowel movement was on Monday night. Patient states that he has not been able to have anything down for the past 1 day. He has been throwing up around staff, denies having any blood. Abdominal pain is mostly around the umbilicus, squeezing type of pain, coming in episodes. Patient denies having any chest pain or difficulty in breathing. Patient has history of coronary artery disease had bypass 2, last one was in June 2018, he is not on any anticoagulation other than aspirin. Patient denies having any consumption of outside food. He denies having any fevers chills or rigors. No blood in the stool. Patient denies having any headaches, blurring of vision. No loss of consc iousness. No weakness of his extremities. No dysuria or hematuria. Patient has history of chronic osteoarthritis. He denies using any NSAIDs. In the emergency department patient had a CAT scan of the abdomen and pelvis showing partial small bowel obstruction. So the patient has been started on IV fluids, kept nothing by mouth. Patient has an NG tube in place with some brownish discharge of around 50 mL in the canister. Review of Systems REVIEW OF SYSTEMS: PSYCH: No anxiety or depression NEURO:No c/o weakness of the extremties, No facial droop, No speech abnorm alities. VASCULAR: Peripheral nervous system within the normal limits no edema HEMATOLOGIC: No history of easy bleeding and bruising . No recent infections . RESPIRATORY: No cough, No SOB, No chest discomfort. IMMUNE: No infections INTEGUMENT: no rashes OPHTHALMOLOGIC: No blurry vision and no eye discharge : No dysuria or hematuria CARDIAC: No chest pain , shortness of breath , paroxysmal nocturnal dyspnea MUSCULOSKELETAL : No Aches or pains in the joints or muscles. GI: As per HPI Past Medical History Past Medical History: Asthma, Diabetes Mellitus, GERD/Reflux, Hearing Disorder / Deafness, Hypertension, Osteoarthritis (OA), Thyroid Disorder Additional Past Medical History / Comment(s): HX DIVERTICULITIS, BACK & NECK PAIN, SKIN CANCER, ARTHRITIS WITH PAIN BOTH KNEES, STATES HX OF KIDNEY AND PROSTATE INFECTION., RINGING IN EARS AND 10 % HEARING LOSS History of Any Multi-Drug Resistant Organisms: None Reported Past Surgical History: Back Surgery, Bowel Resection, Coronary Bypass/CABG, Heart Catheterization, Orthopedic Surgery Additional Past Surgical History / Comment(s): BACK SURGERY (1985,1986)., CABG 5 VELLEL 2010)., RIGHT TRIGGER FINGER, RIGHT CARPAL TUNNEL, GANGLION CYST LEFT WRIST. Past Anesthesia/Blood Transfusion Reactions: No Reported Reaction Additional Past Anesthesia/Blood Transfusion Reaction / Comment(s): MOM= PONV Past Psychological History: No Psychological Hx Reported Smoking Status: Never smoker Past Alcohol Use History: None Reported Past Drug Use History: None Reported - Past Family History Father Family Medical History: Cancer Additional Family Medical History / Comment(s): PROSTATE & SKIN CANCER Brother(s) Family Medical History: Cancer Medications and Allergies Home Medications Medication Instructions Recorded Confirmed Type Atorvastatin [Lipitor] 40 mg PO QAM 02/26/15 03/30/19 History Esomeprazole Magnesium [NexIUM] 40 mg PO AC-SUPPER 02/26/15 03/30/19 History Metoprolol Tartrate [Lopressor] 25 mg PO BID 02/26/15 03/30/19 History Montelukast Sodium [Singulair] 5 mg PO HS 02/26/15 03/30/19 History Multivitamin [Multiple Vitamins] 1 tab PO DAILY 02/26/15 03/30/19 History Naproxen Sodium [Aleve] 220 mg PO DAILY 02/26/15 03/30/19 History Tamsulosin HCl [Flomax] 0.4 mg PO DAILY 02/26/15 03/30/19 History Levothyroxine Sodium [Synthroid] 50 mcg PO DAILY 04/24/18 03/30/19 History amLODIPine BESYLATE [Norvasc] 5 mg PO HS 04/24/18 03/30/19 History L.acidoph,Paracasei, B.lactis 1 cap PO DAILY 08/23/18 03/30/19 History [Probiotic] sitaGLIPtin PHOS/metFORMIN HCL 1 tab PO QAM 08/23/18 03/30/19 History [Janumet 50-500 mg Tablet] Aspirin [Adult Low Dose Aspirin EC] 81 mg PO DAILY #1 tablet. 03/04/19 03/30/19 Rx Acetaminophen Tab [Tylenol] 1,000 mg PO Q6H 03/30/19 03/30/19 History Allergies Allergy/AdvReac Type Severity Reaction Status Date / Time codeine Allergy Hallucinati Verified 03/30/19 19:22 ons lisinopril Allergy Cough Verified 03/30/19 19:22 Sulfa (Sulfonamide AdvReac Nausea & Verified 03/30/19 19:22 Antibiotics) Vomiting tape Allergy Rash/Hives, Uncoded 03/30/19 16:30 states "paper tape is ok" Physical Exam Vitals: Vital Signs Temp Pulse Pulse Resp BP BP BP 03/31/19 06:40 97.9 F 82 20 149/77 03/31/19 01:43 98.4 F 94 17 148/71 03/30/19 20:22 98.1 F 93 158/78 03/30/19 20:19 98.6 F 98 15 159/82 03/30/19 20:06 100 20 162/86 03/30/19 20:01 98.7 F 92 18 158/78 03/30/19 16:26 99.2 F 111 H 18 168/88 Pulse Ox 03/31/19 06:40 95 03/31/19 01:43 95 03/30/19 20:22 92 L 03/30/19 20:19 98 03/30/19 20:06 98 03/30/19 20:01 98 03/30/19 16:26 94 L Intake and Output 03/30/19 03/31/19 03/31/19 22:59 06:59 14:59 Intake Total 800 Output Total 200 Balance 800 -200 Intake: Intake, IV Titration 800 Amount Sodium Chloride 0.9% 1, 800 000 ml @ 100 mls/hr IV . Q10H [facility] Rx#:[id number] Output: Urine 200 Other: Voiding Method Urinal # Voids 1 2 Weight 90.718 kg PHYSICAL EXAMINATION: GENERAL: The patient is alert and oriented x3, not in any acute distress. Well developed, well nourished. HEENT: No pallor. No icterus. CARDIOVASCULAR: S1 and S2 present. No murmurs, rubs, or gallops. PULMONARY: Bilateral breath sounds are positive. No wheezes or crackles. ABDOMEN: Soft, nondistend. Mild tenderness in the. Umbilical area. Hypoactive bowel sounds heard. MUSCULOSKELETAL: Bilateral surgical scars over the Knees EXTREMITIES: No cyanosis, clubbing, or pedal edema. NEUROLOGICAL: Gross neurological examination did not reveal any focal deficits. SKIN: No rashes. Results CBC & Chem 7: 03/30/19 17:10 03/30/19 17:10 Labs: Abnormal Lab Results - Last 24 Hours (Table) 03/30/19 03/30/19 03/30/19 Range/Units 17:10 17:10 18:35 WBC 12.5 H (3.8-10.6) k/uL Hgb 12.8 L (13.0-17.5) gm/dL MCV 78.9 L (80.0-100.0) fL MCH 24.1 L (25.0-35.0) pg MCHC 30.6 L (31.0-37.0) g/dL RDW 16.2 H (11.5-15.5) % Plt Count 558 H (150-450) k/uL Neutrophils # 10.1 H (1.3-7.7) k/uL Glucose 127 H (74-99) mg/dL Ur Specific [place] >1.050 H (1.001-1.035) Urine Protein Trace H (Negative) Urine Ketones 1+ H (Negative) Thrombosis Risk Factor Assmnt - Choose All That Apply Each Factor Represents 1 point: Obesity (BMI >25) Each Risk Factor Represents 3 Points: Age 75 years or older Thrombosis Risk Factor Assessment Total Risk Factor Score: 4 Thrombosis Risk Factor Assessment Level: Moderate Risk Assessment and Plan Assessment: ASSESSMENT Partial/complete small bowel obstruction Nausea and vomiting - secondary to above Coronary artery disease status post CABG 2 Type 2 diabetes mellitus Hypertension Multiple joint osteoarthritis History of skin cancer History of bowel resection History of carpal.Down syndrome Obesity with BMI of 31.3 PLAN: Patient is being managed conservatively by surgery team. Continue with IV fluids, nothing by mouth, NG tube to suction. All his medications have been on hold as he is nothing by mouth. Will consult cardiology for preop clearance as the patient has history of extensive coronary artery disease. We'll continue with the current medication regimen. Further recommendations depending on the progress of the patient.
[2019-03-31 12:00] LABS: Glucose,Whole Blood 104 mg/dL (75-99)
--- NOTE | 2019-03-31 13:20 | CONS ---
CONSULTATION Mr. Beach is a 78-year-old male with a known history of coronary artery disease status post coronary artery bypass grafting with known occluded graft, has underwent cardiac catheterization by Dr. Bowling in April of 2018 and at that time was found to have a patent PERES to LAD, with occluded saphenous vein graft. He was treated medically. He subsequently underwent bilateral knee surgery and has done well from the cardiac standpoint. He has done well until Monday when he started to complain of abdominal discomfort with nausea and was admitted through the emergency room with symptoms of small-bowel obstruction. He was evaluated by Dr. Hollins. He feels better today. He has an NG tube. He has passed some gas and his abdominal pain recovered. Cardiac- anderson, he has been doing well. He denies any symptoms of dyspnea. No dizziness. No palpitation. No syncope. No PND. No orthopnea. He has some peripheral edema, worse after his knee surgery, most recently in February. His coronary risk factors are positive for history of diabetes, hypertension, and hyperlipidemia. MEDICATIONS: Include aspirin, Lipitor 40 mg daily, Norvasc 5 mg daily, singular 5 mg daily, Lopressor 25 mg twice a day, Synthroid, and Janumet. REVIEW OF SYSTEMS: RESPIRATORY SYSTEM: He has no recent wheezing. No cough. No history of obstructive lung disease. GI system: He had the nausea and vomiting as noted. No GI bleeding. system: No dysuria or hematuria. NERVOUS SYSTEM: No stroke or seizure. PHYSICAL EXAMINATION: GENERAL: He is a 78-year-old male, alert, oriented, in no apparent distress. VITAL SIGNS: Blood pressure 149/70 with a heart rate in the 80s. HEAD: Normocephalic. Eyes sclerae anicteric. NECK: Good upstroke. No bruit. No jugular venous distention. LUNGS: Clear to auscultation. HEART: Regular rate and rhythm S1, S2. No S3 with a systolic ejection murmur. No diastolic murmur. No rub. ABDOMEN: Soft, nontender. NG tube placed. Hypoactive bowel sounds. EXTREMITIES: Trace to 1+ edema more noted on the right side. LAB DATA: Lab data revealed BUN and creatinine of 18 and 0.88, potassium 4.2, hemoglobin of 12.8. Troponin less than 0.012. EKG revealed a sinus mechanism with a rate of 102, normal axis and intervals nonspecific ST-T wave changes. Chest x-ray revealed no evidence of acute infiltrate. Abdominal CT revealed small bowel obstruction. IMPRESSION: 1. Small-bowel obstruction treated conservatively at this time. 2. Status post coronary artery bypass grafting, stable with known occluded saphenous vein graft. 3. Hypertension. 4. Hyperlipidemia. 5. Diabetes mellitus. RECOMMENDATIONS: From the cardiac standpoint, the patient is stable to undergo surgical intervention if clinically indicated. Thank you for this consult. We will follow with you. SHANNANL / IJN: [id number] /
[2019-03-31] MEDS: HEPARIN SODIUM,PORCINE 5,000 UNIT/ML 1 ML VIAL SQ SCH (15:43)
[2019-03-31 16:53] LABS: Glucose,Whole Blood 92 mg/dL (75-99)
[2019-03-31] MEDS: hydrALAZINE HCL 10 MG TAB PO PRN (18:00)
[2019-03-31] MEDS ORDERED: hydrALAZINE HCL 10 MG TAB PO SCH (18:00)
[2019-03-31 20:39] LABS: Glucose,Whole Blood 104 mg/dL (75-99)
[2019-04-01] MEDS: HEPARIN SODIUM,PORCINE 5,000 UNIT/ML 1 ML VIAL SQ SCH ×4 (00:28→23:31)
[2019-04-01] MEDS: SODIUM CHLORIDE 0.9% 1,000 ML IV SCH ×3 (02:25→20:49)
[2019-04-01 06:59] LABS: Glucose,Whole Blood 92 mg/dL (75-99)
[2019-04-01] MEDS: INSULIN ASPART (NovoLOG) 100 UNIT/ML VIAL SQ SCH ×4 (08:35→20:40)
[2019-04-01 08:44] LABS: Anisocytosis Slight; Basophils % (A) 0 %; Eosinophils # (A) 0.8 k/uL (0-0.7); Eosinophils % (A) 7 %; HCT 42.3 % (39.0-53.0); HGB 12.5 gm/dL (13.0-17.5); Hypochromasia Moderate; Lymphocytes # (A) 2.7 k/uL (1.0-4.8); Lymphocytes % (A) 25 %; MCH 23.9 pg (25.0-35.0); MCHC 29.5 g/dL (31.0-37.0); Monocytes # (A) 0.6 k/uL (0-1.0); Monocytes % (A) 6 %; Neutrophils # (A) 6.5 k/uL (1.3-7.7); Neutrophils % (A) 61 %; Platelet Count 541 k/uL (150-450); RBC 5.22 m/uL (4.30-5.90); RDW 16.6 % (11.5-15.5); WBC 10.8 k/uL (3.8-10.6)
--- NOTE | 2019-04-01 08:48 | XR ---
EXAMINATION TYPE: XR abdomen 2V DATE OF EXAM: 04/01/2019 COMPARISON: 03/30/2019 HISTORY: Follow-up TECHNIQUE: One view abdominal series FINDINGS: The osseous structures are intact. The bowel gas pattern is nonspecific. Air seen throughout both la rge and small bowel loops in a nonspecific pattern. NG tube seen at level the GE junction. Surgical c hange involving the mediastinum. 7 mm calcification the right upper quadrant. Hypertrophic and degene rative change of the spine. Arthropathy of the shoulders. Calcifications the pelvis are nonspecific IMPRESSION: 1. Nonspecific abdomen there remains a air throughout both large and small bowel loops. NG tube could be advanced as it appears at the level the distal esophagus near the GE junction. 2. Right renal calculus suspected.
[2019-04-01 08:59] LABS: Anion Gap 11 mmol/L; Blood Urea Nitrogen 11 mg/dL (9-20); Calcium 9.7 mg/dL (8.4-10.2); Carbon Dioxide 24 mmol/L (22-30); Chloride 107 mmol/L (98-107); Glucose 91 mg/dL (74-99); Potassium 4.1 mmol/L (3.5-5.1); Sodium 142 mmol/L (137-145)
--- NOTE | 2019-04-01 11:28 | P.PN ---
<Marisel Thornton Rylan - Last Filed: 04/01/19 11:24> Subjective Progress Note Date: 04/01/19 CHIEF COMPLAINT: SBO HISTORY OF PRESENT ILLNESS: Patient examined at the bedside. Patient denies abdominal pain. Passing flatus. Denies BM. Reports improvement in abdominal bloating and states "My belly is almost back to normal". WBC 10.8. Hemoglobin 12.5. Abdominal xray from this AM reviewed. PHYSICAL EXAM: VITAL SIGNS: Reviewed. GENERAL: Well-developed in no acute distress. HEENT: NG to LIS with small amount of bilious drainage. No sclera icterus. Extraocular movements grossly intact. Moist buccal mucosa. Head is atraumatic, normocephalic. ABDOMEN: Soft. Distention improved. Nontender. Positive bowel sounds. NEUROLOGIC: Alert and oriented. Cranial nerves II through XII grossly intact. ASSESSMENT: 1. Small bowel obstruction PLAN: Discontinue NG tube and begin clear liquid diet. Activity as tolerated. Will continue to follow. Nurse practitioner note has been reviewed by physician. Signing provider agrees with the documented findings, assessment, and plan of care. Objective - Vital Signs Vital signs: Vital Signs Temp 98.5 F 04/01/19 07:29 Pulse 90 04/01/19 07:29 Resp 18 04/01/19 00:55 BP 165/77 04/01/19 07:29 Pulse Ox 92 L 04/01/19 07:29 Intake & Output 03/31/19 04/01/19 04/01/19 18:59 06:59 18:59 Output Total 1025 300 Balance -1025 -300 Output: Urine 1025 300 Other: Voiding Method Urinal # Voids 4 300 - Labs CBC & Chem 7: 04/01/19 08:20 04/01/19 08:20 Labs: Abnormal Lab Results - Last 24 Hours (Table) 03/31/19 03/31/19 04/01/19 Range/Units 11:57 20:38 08:20 WBC 10.8 H (3.8-10.6) k/uL Hgb 12.5 L (13.0-17.5) gm/dL MCH 23.9 L (25.0-35.0) pg MCHC 29.5 L (31.0-37.0) g/dL RDW 16.6 H (11.5-15.5) % Plt Count 541 H (150-450) k/uL Eosinophils # 0.8 H (0-0.7) k/uL POC Glucose (mg/dL) 104 H 104 H (75-99) mg/dL <Richy Hollins - Last Filed: 04/01/19 13:04> Subjective As above. Patient doing better today. He did pass flatus. Abdominal x-rays nonspecific. Denies pain. Begin clear liquids. Possible discharge tomorrow if doing well. Objective - Vital Signs Vital signs: Vital Signs Temp 98.5 F 04/01/19 07:29 Pulse 90 04/01/19 07:29 Resp 18 04/01/19 00:55 BP 165/77 04/01/19 07:29 Pulse Ox 92 L 04/01/19 07:29 Intake & Output 03/31/19 04/01/19 04/01/19 18:59 06:59 18:59 Output Total 1025 300 Balance -1025 -300 Output: Urine 1025 300 Other: Voiding Method Urinal # Voids 4 300 - Labs CBC & Chem 7: 04/01/19 08:20 04/01/19 08:20 Labs: Abnormal Lab Results - Last 24 Hours (Table) 03/31/19 04/01/19 Range/Units 20:38 08:20 WBC 10.8 H (3.8-10.6) k/uL Hgb 12.5 L (13.0-17.5) gm/dL MCH 23.9 L (25.0-35.0) pg MCHC 29.5 L (31.0-37.0) g/dL RDW 16.6 H (11.5-15.5) % Plt Count 541 H (150-450) k/uL Eosinophils # 0.8 H (0-0.7) k/uL POC Glucose (mg/dL) 104 H (75-99) mg/dL Assessment and Plan (1) Small bowel obstruction Current Visit: Yes Status: Acute Code(s): K56.609 - UNSP INTESTNL OBST, UNSP TO PARTIAL VERSUS COMPLETE OBST SNOMED Code(s): 313022415
[2019-04-01 11:46] LABS: Glucose,Whole Blood 78 mg/dL (75-99)
--- NOTE | 2019-04-01 12:53 | P.PN ---
Subjective Patient resting in bed without any complaints. States abdominal pain improving states he is passing gas. Note from surgery they will discontinue NG and start clear liquid diet. Abdominal x-ray shows nonobstructive bowel gas pattern Objective - Vital Signs Vital signs: Vital Signs Temp 98.5 F 04/01/19 07:29 Pulse 90 04/01/19 07:29 Resp 18 04/01/19 00:55 BP 165/77 04/01/19 07:29 Pulse Ox 92 L 04/01/19 07:29 Intake & Output 03/31/19 04/01/19 04/01/19 18:59 06:59 18:59 Output Total 1025 300 Balance -1025 -300 Output: Urine 1025 300 Other: Voiding Method Urinal # Voids 4 300 - Constitutional General appearance: Present: obese - EENT EENT Comment(s): NG tube in place Eyes: Present: PERRLA Ears: bilateral: normal - Neck Neck: Present: normal ROM - Respiratory Respiratory: bilateral: CTA - Cardiovascular Rhythm: regular - Gastrointestinal General gastrointestinal: Present: normal bowel sounds, soft - Integumentary Integumentary: Present: normal - Neurologic Neurologic: Present: CNII-XII intact - Musculoskeletal Musculoskeletal: Present: generalized weakness - Psychiatric Psychiatric: Present: A&O x's 3, appropriate affect, intact judgment & insight - Labs CBC & Chem 7: 04/01/19 08:20 04/01/19 08:20 Labs: Abnormal Lab Results - Last 24 Hours (Table) 03/31/19 04/01/19 Range/Units 20:38 08:20 WBC 10.8 H (3.8-10.6) k/uL Hgb 12.5 L (13.0-17.5) gm/dL MCH 23.9 L (25.0-35.0) pg MCHC 29.5 L (31.0-37.0) g/dL RDW 16.6 H (11.5-15.5) % Plt Count 541 H (150-450) k/uL Eosinophils # 0.8 H (0-0.7) k/uL POC Glucose (mg/dL) 104 H (75-99) mg/dL - Imaging and Cardiology Abdominal x-ray: report reviewed CT scan - abdomen: report reviewed Assessment and Plan Plan: Assessment Small bowel obstruction Nausea and vomiting secondary to above Coronary disease with history of CABG Diabetes type 2 Hypertension Multiple joint osteoarthritis history of bowel resection Carpal tunnel syndrome Obesity BMI 31.3 Plan Cardiology cleared for any procedures Continue consultation with surgery they plan on discontinuing the NG tube and starting clear liquid diet
[2019-04-01 16:42] LABS: Glucose,Whole Blood 115 mg/dL (75-99)
[2019-04-01 20:37] LABS: Glucose,Whole Blood 119 mg/dL (75-99)
[2019-04-01] MEDS: hydrALAZINE HCL 10 MG TAB PO PRN (20:53)
[2019-04-02 07:32] LABS: Glucose,Whole Blood 89 mg/dL (75-99)
[2019-04-02] MEDS: INSULIN ASPART (NovoLOG) 100 UNIT/ML VIAL SQ SCH ×3 (08:52→21:43)
[2019-04-02] MEDS: HEPARIN SODIUM,PORCINE 5,000 UNIT/ML 1 ML VIAL SQ SCH ×2 (09:09→16:16)
[2019-04-02 11:30] LABS: Glucose,Whole Blood 97 mg/dL (75-99)
--- NOTE | 2019-04-02 11:55 | P.PN ---
<ThorntonMarisel Rylan - Last Filed: 04/02/19 11:53> Subjective Progress Note Date: 04/02/19 CHIEF COMPLAINT: SBO HISTORY OF PRESENT ILLNESS: Patient examined at the bedside. Patient denies abdominal pain. Passing flatus. Reports formed bowel movement this morning. Tolerating clear liquid diet. Asking for diet to be advanced. PHYSICAL EXAM: VITAL SIGNS: Reviewed. GENERAL: Well-developed in no acute distress. HEENT: No sclera icterus. Extraocular movements grossly intact. Moist buccal mucosa. Head is atraumatic, normocephalic. ABDOMEN: Soft. Nondistended. Nontender. Positive bowel sounds. NEUROLOGIC: Alert and oriented. Cranial nerves II through XII grossly intact. ASSESSMENT: 1. Small bowel obstruction, resolved PLAN: Advance diet. Patient may be discharged home this afternoon from a surgical standpoint if he tolerates diet. Nurse practitioner note has been reviewed by physician. Signing provider agrees with the documented findings, assessment, and plan of care. Objective - Vital Signs Vital signs: Vital Signs Temp 98.3 F 04/02/19 07:30 Pulse 75 04/02/19 08:00 Resp 16 04/02/19 07:30 BP 174/85 04/02/19 07:30 Pulse Ox 93 L 04/02/19 07:30 Intake & Output 04/01/19 04/02/19 04/02/19 18:59 06:59 18:59 Intake Total 640 450 480 Output Total 940 300 Balance 640 -490 180 Intake: Intake, IV Titration 200 Amount Sodium Chloride 0.9% 1, 200 000 ml @ 100 mls/hr IV . Q10H [facility] Rx#:[id number] Oral 640 250 480 Output: Urine 940 300 Other: Voiding Method Toilet Urinal # Voids 2 2 - Labs CBC & Chem 7: 04/01/19 08:20 04/01/19 08:20 Labs: Abnormal Lab Results - Last 24 Hours (Table) 04/01/19 04/01/19 Range/Units 16:40 20:36 POC Glucose (mg/dL) 115 H 119 H (75-99) mg/dL <Richy Hollins - Last Filed: 04/02/19 18:43> Subjective Patient doing well. Has had 3 bowel movement. Denies abdominal pain. Tolerating regular diet currently. May discharge later tonight or tomorrow. Follow-up as needed. Objective - Vital Signs Vital signs: Vital Signs Temp 98.5 F 04/02/19 13:57 Pulse 82 04/02/19 13:57 Resp 16 04/02/19 13:57 BP 158/70 04/02/19 13:57 Pulse Ox 95 04/02/19 13:57 Intake & Output 04/01/19 04/02/19 04/02/19 18:59 06:59 18:59 Intake Total 640 450 480 Output Total 940 300 Balance 640 -490 180 Intake: Intake, IV Titration 200 Amount Sodium Chloride 0.9% 1, 200 000 ml @ 100 mls/hr IV . Q10H [facility] Rx#:[id number] Oral 640 250 480 Output: Urine 940 300 Other: Voiding Method Toilet Urinal # Voids 2 2 2 # Bowel Movements 2 - Labs CBC & Chem 7: 04/01/19 08:20 04/01/19 08:20 Labs: Abnormal Lab Results - Last 24 Hours (Table) 04/01/19 04/02/19 Range/Units 20:36 16:22 POC Glucose (mg/dL) 119 H 100 H (75-99) mg/dL Assessment and Plan (1) Small bowel obstruction Current Visit: Yes Status: Acute Code(s): K56.609 - UNSP INTESTNL OBST, UNSP TO PARTIAL VERSUS COMPLETE OBST SNOMED Code(s): 013499754
--- NOTE | 2019-04-02 12:12 | P.PN ---
Subjective Patient improved no abdominal pain. States he's had 2 bowel movements. Retaining clear liquid diet advanced. May be discharged if able to tolerate diet Objective - Vital Signs Vital signs: Vital Signs Temp 98.3 F 04/02/19 07:30 Pulse 75 04/02/19 08:00 Resp 16 04/02/19 07:30 BP 174/85 04/02/19 07:30 Pulse Ox 93 L 04/02/19 07:30 Intake & Output 04/01/19 04/02/19 04/02/19 18:59 06:59 18:59 Intake Total 640 450 480 Output Total 940 300 Balance 640 -490 180 Intake: Intake, IV Titration 200 Amount Sodium Chloride 0.9% 1, 200 000 ml @ 100 mls/hr IV . Q10H [facility] Rx#:[id number] Oral 640 250 480 Output: Urine 940 300 Other: Voiding Method Toilet Urinal # Voids 2 2 - Constitutional General appearance: Present: obese - EENT Eyes: Present: PERRLA Ears: bilateral: normal - Neck Neck: Present: normal ROM - Respiratory Respiratory: bilateral: CTA - Cardiovascular Rhythm: regular - Gastrointestinal General gastrointestinal: Present: normal bowel sounds, soft - Integumentary Integumentary: Present: normal - Neurologic Neurologic: Present: CNII-XII intact - Psychiatric Psychiatric: Present: A&O x's 3, appropriate affect, intact judgment & insight - Labs CBC & Chem 7: 04/01/19 08:20 04/01/19 08:20 Labs: Abnormal Lab Results - Last 24 Hours (Table) 04/01/19 04/01/19 Range/Units 16:40 20:36 POC Glucose (mg/dL) 115 H 119 H (75-99) mg/dL Assessment and Plan Plan: Assessment Small bowel obstruction resolving Nausea and vomiting secondary to above History of coronary disease post CABG 2 Diabetes type 2 Hypertension History of bowel resection Obesity BMI 31.3 Plan Discharge home if able to retain advance diet
[2019-04-02] MEDS: ACETAMINOPHEN TAB 500 MG TAB PO SCH ×3 (12:23→21:52)
[2019-04-02 16:37] LABS: Glucose,Whole Blood 100 mg/dL (75-99)
[2019-04-02] MEDS: SODIUM CHLORIDE 0.9% 1,000 ML IV SCH (17:14)
[2019-04-02] MEDS ORDERED: PANTOPRAZOLE 40 MG TABLET PO SCH (17:30)
[2019-04-02] MEDS ORDERED: amLODIPine 5 MG TAB PO SCH (21:00)
[2019-04-02] MEDS ORDERED: MONTELUKAST 5 MG CHEWABLE PO SCH (21:00)
[2019-04-02 21:15] LABS: Glucose,Whole Blood 105 mg/dL (75-99)
[2019-04-02] MEDS: METOPROLOL TARTRATE 25 MG TAB PO SCH (21:52)
[2019-04-03] MEDS: HEPARIN SODIUM,PORCINE 5,000 UNIT/ML 1 ML VIAL SQ SCH ×2 (01:21→08:56)
[2019-04-03] MEDS: SODIUM CHLORIDE 0.9% 1,000 ML IV SCH (02:34)
[2019-04-03] MEDS: ACETAMINOPHEN TAB 500 MG TAB PO SCH (04:15)
[2019-04-03] MEDS ORDERED: LEVOTHYROXINE 50 MCG TAB PO SCH (06:30)
[2019-04-03 07:51] LABS: Glucose,Whole Blood 97 mg/dL (75-99)
[2019-04-03] MEDS: INSULIN ASPART (NovoLOG) 100 UNIT/ML VIAL SQ SCH (08:14)
[2019-04-03 08:38] VITALS: BP 163/82; PULSE 83; RESP 16; TEMP 98.3
[2019-04-03] MEDS: METOPROLOL TARTRATE 25 MG TAB PO SCH (08:57)
[2019-04-03] MEDS ORDERED: metFORMIN 500 MG TAB PO SCH (09:00)
[2019-04-03] MEDS ORDERED: ASPIRIN 81 MG PO SCH (09:00)
[2019-04-03] MEDS ORDERED: ATORVASTATIN 40 MG TAB PO SCH (09:00)
[2019-04-03] MEDS ORDERED: LINAGLIPTIN 5 MG TABLET PO SCH (09:00)
[2019-04-03] MEDS ORDERED: LACTOBACILLUS ACIDOPH & BULGAR 1 EACH PACKET PO SCH (09:00)
[2019-04-03] MEDS ORDERED: TAMSULOSIN 0.4 MG CAP.ER.24H PO SCH (09:00)
--- NOTE | 2019-04-03 10:23 | P.DS ---
Providers Date of admission: 03/30/19 19:02 Expected date of discharge: 04/03/19 Attending physician: David Thurston Consults: 03/30/19 19:07 Consult Physician Routine Consulting Provider: Richy Hollins Consult Reason/Comments: SBO, possible upper GI bleed Do you want consulting provider notified?: Already Contacted 03/31/19 11:08 Consult Physician Routine Consulting Provider: [facility] Consult Reason/Comments: cardiology clearance, recent CABG Do you want consulting provider notified?: Yes Primary care physician: David Thurston Hospital Course: 78-year-old male was admitted with a small bowel obstruction. Was treated with NG. Was cleared by cardiology for any surgical procedures. Patient was evaluated by surgeon Dr. De La Paz and cleared for discharge Assessment Small bowel obstruction resolved Nausea and vomiting secondary to above resolved History of coronary artery disease post CABG diabetes type 2 Hypertension Osteoarthritis history of bowel resection Obesity BMI 31.3 Plan Discharged home to follow-up with surgeon Dr. De La Paz and family physician Dr. David Thurston Patient Condition at Discharge: Stable Plan - Discharge Summary Discharge Rx Participant: No New Discharge Prescriptions: No Action Naproxen Sodium [Aleve] 220 mg PO DAILY Multivitamin [Multiple Vitamins] 1 tab PO DAILY Esomeprazole Magnesium [NexIUM] 40 mg PO AC-SUPPER Montelukast Sodium [Singulair] 5 mg PO HS Tamsulosin HCl [Flomax] 0.4 mg PO DAILY Metoprolol Tartrate [Lopressor] 25 mg PO BID Atorvastatin [Lipitor] 40 mg PO QAM Levothyroxine Sodium [Synthroid] 50 mcg PO DAILY amLODIPine BESYLATE [Norvasc] 5 mg PO HS L.acidoph,Paracasei, B.lactis [Probiotic] 1 cap PO DAILY sitaGLIPtin PHOS/metFORMIN HCL [Janumet 50-500 mg Tablet] 1 tab PO QAM Aspirin [Adult Low Dose Aspirin EC] 81 mg PO DAILY #1 tablet. Acetaminophen Tab [Tylenol] 1,000 mg PO Q6H Discharge Medication List Atorvastatin [Lipitor] 40 mg PO QAM 02/26/15 [History] Esomeprazole Magnesium [NexIUM] 40 mg PO AC-SUPPER 02/26/15 [History] Metoprolol Tartrate [Lopressor] 25 mg PO BID 02/26/15 [History] Montelukast Sodium [Singulair] 5 mg PO HS 02/26/15 [History] Multivitamin [Multiple Vitamins] 1 tab PO DAILY 02/26/15 [History] Naproxen Sodium [Aleve] 220 mg PO DAILY 02/26/15 [History] Tamsulosin HCl [Flomax] 0.4 mg PO DAILY 02/26/15 [History] Levothyroxine Sodium [Synthroid] 50 mcg PO DAILY 04/24/18 [History] amLODIPine BESYLATE [Norvasc] 5 mg PO HS 04/24/18 [History] L.acidoph,Paracasei, B.lactis [Probiotic] 1 cap PO DAILY 08/23/18 [History] sitaGLIPtin PHOS/metFORMIN HCL [Janumet 50-500 mg Tablet] 1 tab PO QAM 08/23/18 [History] Aspirin [Adult Low Dose Aspirin EC] 81 mg PO DAILY #1 tablet. 03/04/19 [Rx] Acetaminophen Tab [Tylenol] 1,000 mg PO Q6H 03/30/19 [History] Follow up Appointment(s)/Referral(s): Richy Hollins MD [Medical Doctor] - 1 Week David Thurston MD [Primary Care Provider] - 1-2 days
--- NOTE | 2019-04-03 11:33 | P.PN ---
<Marisel Thornton - Last Filed: 04/03/19 11:32> Subjective Progress Note Date: 04/03/19 CHIEF COMPLAINT: SBO HISTORY OF PRESENT ILLNESS: Patient examined at the bedside. Patient denies abdominal pain. Passing flatus and having bowel movements. Tolerating diet. Denies nausea or vomiting. PHYSICAL EXAM: VITAL SIGNS: Reviewed. GENERAL: Well-developed in no acute distress. HEENT: No sclera icterus. Extraocular movements grossly intact. Moist buccal mucosa. Head is atraumatic, normocephalic. ABDOMEN: Soft. Nondistended. Nontender. Positive bowel sounds. NEUROLOGIC: Alert and oriented. Cranial nerves II through XII grossly intact. ASSESSMENT: 1. Small bowel obstruction, resolved PLAN: Patient is stable for discharge from a surgical standpoint He may return to outpatient physical therapy from a surgical standpoint Nurse practitioner note has been reviewed by physician. Signing provider agrees with the documented findings, assessment, and plan of care. Objective - Vital Signs Vital signs: Vital Signs Temp 98.3 F 04/03/19 07:15 Pulse 83 04/03/19 07:15 Resp 16 04/03/19 07:15 BP 163/82 04/03/19 07:15 Pulse Ox 98 04/03/19 07:15 Intake & Output 04/02/19 04/03/19 04/03/19 18:59 06:59 18:59 Intake Total 480 1430 Output Total 300 Balance 180 1430 Intake: Oral 480 1430 Output: Urine 300 Other: Voiding Method Toilet Urinal # Voids 2 1 # Bowel Movements 2 - Labs CBC & Chem 7: 04/01/19 08:20 04/01/19 08:20 Labs: Abnormal Lab Results - Last 24 Hours (Table) 04/02/19 04/02/19 Range/Units 16:22 21:14 POC Glucose (mg/dL) 100 H 105 H (75-99) mg/dL <Richy Hollins - Last Filed: 04/03/19 12:33> Subjective As above. Patient doing well. Tolerating diet. Good bowel function. May discharge. Objective - Vital Signs Vital signs: Vital Signs Temp 98.3 F 04/03/19 07:15 Pulse 83 04/03/19 07:15 Resp 16 04/03/19 07:15 BP 163/82 04/03/19 07:15 Pulse Ox 98 04/03/19 07:15 Intake & Output 04/02/19 04/03/19 04/03/19 18:59 06:59 18:59 Intake Total 480 1430 Output Total 300 Balance 180 1430 Intake: Oral 480 1430 Output: Urine 300 Other: Voiding Method Toilet Urinal # Voids 2 1 # Bowel Movements 2 - Labs CBC & Chem 7: 04/01/19 08:20 04/01/19 08:20 Labs: Abnormal Lab Results - Last 24 Hours (Table) 04/02/19 04/02/19 Range/Units 16:22 21:14 POC Glucose (mg/dL) 100 H 105 H (75-99) mg/dL Assessment and Plan (1) Small bowel obstruction Current Visit: Yes Status: Acute Code(s): K56.609 - UNSP INTESTNL OBST, UNSP TO PARTIAL VERSUS COMPLETE OBST SNOMED Code(s): 876699186
[2019-04-03] MEDS ORDERED: MULTIVITAMINS, THERA 1 EACH TAB PO SCH (12:00)
== END 2019-04-03 12:59 | disposition home or self-care (01) | DRG 389 ==
LOC: EC 16:25 → 4SSUR 19:02
PROVIDERS: ADMIT Family Medicine; ATTEND Family Medicine
PROC: 0D9670Z Drainage of Stomach with Drainage Device, Via Natural or Artificial Opening (ICD-10-PCS; principal; 2019-03-30)
DX: K56.609 Unspecified intestinal obstruction, unspecified as to partial versus complete obstruction (principal); I25.810 Atherosclerosis of coronary artery bypass graft(s) without angina pectoris; E11.9 Type 2 diabetes mellitus without complications; D72.829 Elevated white blood cell count, unspecified; E66.9 Obesity, unspecified; E07.9 Disorder of thyroid, unspecified; Q90.9 Down syndrome, unspecified; I10 Essential (primary) hypertension; E78.5 Hyperlipidemia, unspecified; I25.10 Atherosclerotic heart disease of native coronary artery without angina pectoris; H91.90 Unspecified hearing loss, unspecified ear; K21.9 Gastro-esophageal reflux disease without esophagitis; M54.2 Cervicalgia; J45.909 Unspecified asthma, uncomplicated; M19.90 Unspecified osteoarthritis, unspecified site; Z68.31 Body mass index [BMI] 31.0-31.9, adult; Z79.82 Long term (current) use of aspirin; Z79.84 Long term (current) use of oral hypoglycemic drugs; Z79.1 Long term (current) use of non-steroidal anti-inflammatories (NSAID); Z79.890 Hormone replacement therapy; Z79.01 Long term (current) use of anticoagulants; Z79.899 Other long term (current) drug therapy; Z95.1 Presence of aortocoronary bypass graft; Z86.19 Personal history of other infectious and parasitic diseases; Z85.828 Personal history of other malignant neoplasm of skin; Z90.49 Acquired absence of other specified parts of digestive tract; Z98.890 Other specified postprocedural states; Z96.659 Presence of unspecified artificial knee joint; Z88.5 Allergy status to narcotic agent; Z88.2 Allergy status to sulfonamides; Z88.8 Allergy status to other drugs, medicaments and biological substances; Z91.048 Other nonmedicinal substance allergy status; Z80.8 Family history of malignant neoplasm of other organs or systems; Z80.42 Family history of malignant neoplasm of prostate
CPT/HCPCS: 36415; 71045; 74019; 74177; 80048; 80053; 81003; 82150; 83605; 83690; 84484; 85025; 85610; 85730; 93005; 96361; 96374; 96375; 99285

== ENCOUNTER 2019-09-02 08:16 | Day surgery (SDC) | payer MEDICARE ==
[~2019-09-02 08:16] MED LIST changes: -ACETAMINOPHEN TAB 500 MG TAB PO ONE; -MELOXICAM 7.5 MG TAB PO ONE; -MIDAZOLAM 2 MG/2 ML VIAL IV PRN; +Pre Op ABX Message 1 EACH MISC MISCELLANE ONE; -TRANEXAMIC ACID 1,000 MG in SODIUM CHLORIDE 0.9% 100 ML IVPB ONE; -ceFAZolin IN SWFI 2 GM/20 ML SYRINGE IVP ONE
[2019-09-02 09:08] VITALS: TEMP 97
[2019-09-02 09:08] LABS: Glucose,Whole Blood 110 mg/dL (75-99)
[2019-09-02] MEDS ORDERED: DEXAMETHASONE SOD PHOSPHATE 10 MG/ML 1 ML VIAL IV ONE (09:08)
[2019-09-02] MEDS ORDERED: BUPIVACAINE (PF) 0.5% 30 ML VIAL SQ ONE ×2 (09:37→10:20)
[2019-09-02] MEDS ORDERED: LIDOCAINE 2% INJ 20 MG/ML SQ ONE ×2 (09:38→10:20)
[2019-09-02] MEDS ORDERED: MIDAZOLAM 2 MG/2 ML VIAL ONE (10:06)
[2019-09-02] MEDS ORDERED: PROPOFOL 10 MG/ML 20 ML VIAL IV ONE (10:06)
[2019-09-02] MEDS ORDERED: fentaNYL (PF) 50 MCG/ML 2 ML AMP ONE (10:06)
[2019-09-02 10:52] VITALS: BP 116/66; PULSE 60; RESP 18
--- NOTE | 2019-09-02 12:52 | OP ---
OPERATIVE REPORT SURGERY DATE: 09/02/2019. PREOPERATIVE DIAGNOSIS: Left carpal tunnel. POSTOP DIAGNOSIS: Left carpal tunnel. PROCEDURE: Open left carpal tunnel release. DESCRIPTION OF PROCEDURE: The patient was taken to the Operative Suite where a sedation was administered by the Department of Anesthesia. I then performed a local injection along the line of the incision with a combination of Marcaine and Xylocaine both without epinephrine. The hand was then prepped and draped in the usual manner. The arm was elevated, exsanguinated and the cuff was inflated to 250 mm of mercury. A longitudinal incision was made along the ring finger ray distal to the wrist crease. Dissection was taken through the skin and subcutaneous tissue, initially sharp through the skin and then blunt through the subcutaneous tissue to ensure protection of any potential terminal transverse branches of the palmar cutaneous nerve. The palmar fascia was then incised under direct vision longitudinally exposing the transverse carpal ligament. The transverse carpal ligament also was incised under direct vision. The dissection was then continued proximally beneath the skin under direct vision to release the distal forearm fascia. The median nerve was then reflected free of tenosynovium to ensure no adhesions. The tourniquet was then released. The wound was then irrigated and the skin was closed with a running 5-0 nylon suture. A soft bulky dressing was applied including a volar plaster splint holding the wrist in a neutral slightly extended position. The patient was then taken to the Recovery Room in satisfactory condition. MMODL / IJN: [id number] /
== END 2019-09-02 11:25 | disposition home or self-care (01) ==
LOC: OR 08:16
PROVIDERS: ATTEND Orthopaedic Surgery Hand Surgery
DX: G56.02 Carpal tunnel syndrome, left upper limb (principal); M18.12 Unilateral primary osteoarthritis of first carpometacarpal joint, left hand; I11.9 Hypertensive heart disease without heart failure; J45.909 Unspecified asthma, uncomplicated; E03.9 Hypothyroidism, unspecified; E11.9 Type 2 diabetes mellitus without complications; R51 Headache; H91.90 Unspecified hearing loss, unspecified ear; H92.09 Otalgia, unspecified ear; C44.91 Basal cell carcinoma of skin, unspecified; K21.9 Gastro-esophageal reflux disease without esophagitis; Z79.84 Long term (current) use of oral hypoglycemic drugs; Z79.82 Long term (current) use of aspirin; Z79.890 Hormone replacement therapy; Z79.899 Other long term (current) drug therapy; Z88.5 Allergy status to narcotic agent; Z88.2 Allergy status to sulfonamides; Z88.8 Allergy status to other drugs, medicaments and biological substances; Z91.048 Other nonmedicinal substance allergy status; Z95.1 Presence of aortocoronary bypass graft; Z96.653 Presence of artificial knee joint, bilateral; Z98.890 Other specified postprocedural states; Z87.2 Personal history of diseases of the skin and subcutaneous tissue; Z82.49 Family history of ischemic heart disease and other diseases of the circulatory system
CPT/HCPCS: 64721; J2001; J2250; J1100; J2405; J3010; J2704

== ENCOUNTER → 2020-05-15 | Outpatient (CLI) | payer MEDICARE ==
--- NOTE | 2020-05-15 14:51 | XR ---
EXAMINATION TYPE: XR chest 2V DATE OF EXAM: 05/15/2020 COMPARISON: Prior chest x-ray dated 03/30/2019, 03/06/2019 HISTORY: Unspecified asthma, cough TECHNIQUE: Frontal and lateral views of the chest are obtained. FINDINGS: The patient is status post median sternotomy. NG tube has been removed. There is no focal a ir space opacity, pleural effusion, or pneumothorax seen. The cardiac silhouette size is within norm al limits. The osseous structures are intact, there is multilevel spondylosis. IMPRESSION: No acute cardiopulmonary process.
== END | disposition home or self-care (01) ==
LOC: RADXRMAIN 14:20
PROVIDERS: ATTEND Family Medicine
DX: J45.909 Unspecified asthma, uncomplicated (principal)
CPT/HCPCS: 71046

== ENCOUNTER → 2020-09-24 | Outpatient (CLI) | payer MEDICARE ==
--- NOTE | 2020-09-24 10:02 | CT ---
EXAMINATION TYPE: CT chest wo con DATE OF EXAM: 09/24/2020 COMPARISON: Chest x-ray May 15, 2020 and older chronic coughthrough 2010 HISTORY: chronic cough CT DLP: 1106.6 mGycm. Automated Exposure Control for Dose Reduction was Utilized. TECHNIQUE: CT scan of the thorax is performed without IV contrast. High resolution protocol with 1 m m sequences obtained in 10 mm intervals supine and prone technique. FINDINGS: LUNGS: In the posterior medial aspect left lower lobe there is focal groundglass opacity and reticula tion. There is additional mild linear scarring and/or atelectasis in the bases just above the diaphra gm. No pulmonary masses. No pleural effusion or pneumothorax bilaterally. No significant bronchiectas is. MEDIASTINUM: Post CABG changes with mediastinal clips and sternal wires. Heart size upper limits of n ormal. Mild to moderate biatrial dilatation. No pericardial effusion. Small sized hiatal hernia. No a bnormal mediastinal adenopathy.. OTHER: Multilevel spurring in the thoracic spine. IMPRESSION: Small focus of possible acute on chronic infectious process in the posterior medial as pect left lower lobe. Correlate clinically. Otherwise no significant peripheral fibrotic changes iden tified. No bronchiectasis.
== END | disposition home or self-care (01) ==
LOC: RADCTMAIN 09:38
PROVIDERS: ATTEND Internal Medicine Critical Care Medicine
DX: R05 Cough (principal)
CPT/HCPCS: 71250

== ENCOUNTER 2022-03-12 12:25 | Emergency (ER) | payer MEDICARE ==
--- NOTE | 2022-03-12 13:03 | ED ---
General Adult HPI - General Chief complaint: Urogenital Stated complaint: Male Time Seen by Provider: 03/12/22 12:36 Source: patient Mode of arrival: ambulatory Limitations: no limitations - History of Present Illness Initial comments: Dictation was produced using [employer] dictation software. please excuse any grammatical, word or spelling errors. Chief Complaint: 81-year-old male presents to the emergency department for one day of dysuria and incontinence History of Present Illness: 81-[facility]. Having incontinence and dysuria. Denies any testicular pain. Patient believes that he has a UTI. States that he feels like he has a fever because his eyes feel red. No abdominal pain. The ROS documented in this emergency department record has been reviewed and confirmed by me. Those systems with pertinent positive or negative responses have been documented in the HPI. All other systems are other negative and/or noncontributory. PHYSICAL EXAM: General Impression: Alert and oriented x3, not in acute distress HEENT: Normocephalic atraumatic, extra-ocular movements intact, pupils equal and reactive to light bilaterally, mucous membranes moist. Cardiovascular: Heart regular rate and rhythm Chest: Able to complete full sentences, no retractions, no tachypnea Abdomen: abdomen soft, non-tender, non-distended, no organomegaly Musculoskeletal: Pulses present and equal in all extremities, no peripheral edema Motor: no focal deficits noted Neurological: CN II-XII grossly intact, no focal motor or sensory deficits noted Skin: Intact with no visualized rashes Psych: Normal affect and mood : No testicular tenderness, no pain over the epididymis ED course: 81-year-old male presents emergency department for dysuria. Vital signs upon arrival are within acceptable limits. Urinalysis positive for urinary tract infection. He is has 23 white blood cells. Patient given dose of ceftriaxone. Patient prescription for cefpodoxime. - Related Data Home Medications Medication Instructions Recorded Confirmed Atorvastatin [Lipitor] 40 mg PO QAM 02/26/15 09/02/19 Esomeprazole Magnesium [NexIUM] 40 mg PO AC-SUPPER 02/26/15 09/02/19 Metoprolol Tartrate [Lopressor] 25 mg PO BID 02/26/15 09/02/19 Montelukast Sodium [Singulair Chew] 5 mg PO HS 02/26/15 09/02/19 Multivitamin [Multiple Vitamins] 1 tab PO DAILY 02/26/15 09/02/19 Tamsulosin HCl [Flomax] 0.4 mg PO DAILY 02/26/15 09/02/19 Levothyroxine Sodium [Synthroid] 50 mcg PO QAM 04/24/18 09/02/19 amLODIPine BESYLATE [Norvasc] 5 mg PO HS 04/24/18 09/02/19 L.acidoph,Paracasei, B.lactis 1 cap PO DAILY 08/23/18 09/02/19 [Probiotic] sitaGLIPtin PHOS/metFORMIN HCL 1 tab PO QAM 08/23/18 09/02/19 [Janumet 50-500 mg Tablet] Acetaminophen Tab [Tylenol] 1,000 mg PO Q6H 03/30/19 09/02/19 Previous Rx's Medication Instructions Recorded Aspirin [Adult Low Dose Aspirin EC] 81 mg PO DAILY #1 tablet. 03/04/19 Cefpodoxime Proxetil [Vantin] 200 mg PO Q12HR 10 Days #20 tab 03/12/22 Allergies Allergy/AdvReac Type Severity Reaction Status Date / Time codeine Allergy Hallucinati Verified 03/12/22 12:28 ons lisinopril Allergy Cough Verified 03/12/22 12:28 Sulfa (Sulfonamide AdvReac Nausea & Verified 03/12/22 12:28 Antibiotics) Vomiting tape Allergy Rash/Hives, Uncoded 09/02/19 08:47 states "paper tape is ok" Review of Systems ROS Statement: Those systems with pertinent positive or pertinent negative responses have been documented in the HPI. ROS Other: All systems not noted in ROS Statement are negative. Past Medical History Past Medical History: Asthma, Cancer, Diabetes Mellitus, GERD/Reflux, Hearing D isorder / Deafness, Hypertension, Osteoarthritis (OA), Thyroid Disorder Additional Past Medical History / Comment(s): IP IN MARCH 2019 WITH SBO THAT RESOLVED ON ITS OWN. HX: DIVERTICULITIS. BACK & NECK PAIN. BASAL CELL ABOVE EYE. SKIN CANCER. ARTHRITIS WITH PAIN BOTH KNEES. STATES HX OF KIDNEY AND PROSTATE INFECTION. RINGING IN EARS AND 10 % HEARING LOSS. History of Any Multi-Drug Resistant Organisms: None Reported Past Surgical History: Back Surgery, Bowel Resection, Coronary Bypass/CABG, Heart Catheterization, Orthopedic Surgery Additional Past Surgical History / Comment(s): BACK SURGERY (1985,1986)., (CABG 5 VELLEL 2010, JUN 2012). RIGHT TRIGGER FINGER, RIGHT CARPAL TUNNEL, GANGLION CYST LEFT WRIST. SEVERAL SURGERIES ON RIGHT EAR, "PLUGS"? Past Anesthesia/Blood Transfusion Reactions: No Reported Reaction Additional Past Anesthesia/Blood Transfusion Reaction / Comment(s): MOM= PONV Past Psychological History: No Psychological Hx Reported Past Alcohol Use History: None Reported Past Drug Use History: None Reported - Past Family History Father Family Medical History: Cancer Additional Family Medical History / Comment(s): PROSTATE & SKIN CANCER Brother(s) Family Medical History: Cancer General Exam Limitations: no limitations Course Vital Signs 03/12/22 03/12/22 12:28 13:23 Temperature 98.6 F 99.1 F Pulse Rate 87 85 Respiratory 18 12 Rate Blood Pressure 126/74 145/87 O2 Sat by Pulse 97 93 L Oximetry Medical Decision Making - Lab Data Lab Results 03/12/22 Range/Units 13:12 Urine Color Yellow Urine Appearance Cloudy (Clear) Urine pH 6.0 (5.0-8.0) Ur Specific [place] 1.028 (1.001-1.035) Urine Protein 2+ H (Negative) Urine Glucose (UA) Negative (Negative) Urine Ketones Trace H (Negative) Urine Blood Small H (Negative) Urine Nitrite Negative (Negative) Urine Bilirubin 1+ H (Negative) Urine Urobilinogen 3.0 (<2.0) mg/dL Ur Leukocyte Esterase Large H (Negative) Urine RBC 1 (0-5) /hpf Urine WBC 23 H (0-5) /hpf Urine Bacteria Rare H (None) /hpf Disposition Clinical Impression: UTI (urinary tract infection) Disposition: HOME SELF-CARE Condition: Good Instructions (If sedation given, give patient instructions): Urinary Tract Infection in Men (ED) Prescriptions: Cefpodoxime Proxetil [Vantin] 200 mg PO Q12HR 10 Days #20 tab Is patient prescribed a controlled substance at d/c from ED?: No Referrals: David Thurston MD [Primary Care Provider] - 1-2 days Rashi Hodges MD [STAFF PHYSICIAN] - 1-2 days
[2022-03-12 13:27] VITALS: BP 145/87; PULSE 85; RESP 12; TEMP 99.1
[2022-03-12 13:29] LABS: Appearance,Urine Cloudy (Clear); Bacteria,Urine Rare /hpf; Bilirubin,Urine 1+ (Negative); Blood,Urine Small (Negative); Color,Urine Yellow; Glucose,Urine (UA) Negative (Negative); Ketones,Urine Trace (Negative); Leukocyte Esterase,Urine Large (Negative); Nitrite,Urine Negative (Negative); Protein,Urine 2+ (Negative); RBC,Urine 1 /hpf (0-5); Specific Gravity,Urine 1.028 (1.001-1.035); WBC,Urine 23 /hpf (0-5)
[2022-03-12] MEDS ORDERED: cefTRIAXone IN SWFI 1,000 MG/10 ML SYRINGE IVP STA (13:47)
== END 2022-03-12 14:36 | disposition home or self-care (01) ==
LOC: EC 12:25
DX: N39.0 Urinary tract infection, site not specified (principal); E11.9 Type 2 diabetes mellitus without complications; I10 Essential (primary) hypertension; J45.909 Unspecified asthma, uncomplicated; K21.9 Gastro-esophageal reflux disease without esophagitis; M19.90 Unspecified osteoarthritis, unspecified site; Z79.84 Long term (current) use of oral hypoglycemic drugs; Z79.82 Long term (current) use of aspirin; Z79.899 Other long term (current) drug therapy
CPT/HCPCS: 51798; 81001; 99283; 96374; J0696

== ENCOUNTER → 2022-03-16 | Outpatient (CLI) | payer MEDICARE ==
--- NOTE | 2022-03-16 19:53 | XR ---
EXAMINATION TYPE: XR KUB DATE OF EXAM: 03/16/2022 COMPARISON: 08/19/2015 INDICATION: Abdomen pain right side stone TECHNIQUE: Single view abdomen frontal projection FINDINGS: There is a normal bowel gas pattern. Psoas margins are normal. No organomegaly is present. There is a 1.1 cm calcification over the inferior pole right kidney. Multiple phleboliths are within the pelvis were present previously. Metallic foreign bodies overlie the bilateral hips. IMPRESSION: 1. Calcification over the inferior pole right kidney measures 1.1 cm.
== END | disposition home or self-care (01) ==
LOC: RADXRMAIN 13:50
PROVIDERS: ATTEND Urology
DX: N28.89 Other specified disorders of kidney and ureter (principal)
CPT/HCPCS: 74018

== ENCOUNTER → 2022-09-28 | Outpatient (CLI) | payer MEDICARE ==
--- NOTE | 2022-09-28 12:29 | XR ---
EXAMINATION TYPE: XR chest 2V DATE OF EXAM: 09/28/2022 12:02 PM COMPARISON: Chest radiographs from 05/15/2020, 09/24/2020 TECHNIQUE: XR chest 2V Frontal and lateral views of the chest. CLINICAL INDICATION:Male, 82 years old with history of Z77.090 exposure to asbestos; FINDINGS: Lungs/Pleura: There is no evidence of pleural effusion, focal consolidation, or pneumothorax. Pulmonary vascularity: Unremarkable. Heart/mediastinum: Cardiomediastinal silhouette is enlarged and stable. Musculoskeletal: No acute osseous pathology. Midline sternotomy wires are noted. IMPRESSION: No acute cardiopulmonary disease/process.
== END | disposition home or self-care (01) ==
LOC: RADXRMAIN 11:45
PROVIDERS: ATTEND Family Medicine
DX: Z77.090 Contact with and (suspected) exposure to asbestos (principal)
CPT/HCPCS: 71046

== ENCOUNTER → 2024-08-13 | Outpatient (CLI) | payer MEDICARE ==
--- NOTE | 2024-08-13 11:19 | XR ---
EXAMINATION TYPE: XR shoulder complete RT DATE OF EXAM: 08/13/2024 CLINICAL HISTORY: pain TECHNIQUE: Three views of the right shoulder are obtained. COMPARISON: None FINDINGS: There is no acute fracture/dislocation evident. The acromioclavicular and glenohumeral syeda int spaces appear within normal limits. The visualized ribs are intact and unremarkable. IMPRESSION: 1. There is no acute fracture or dislocation. ICD 10 NO FRACTURE, INITIAL EVALUATION [facility], , 08/13/2024 11:17 AM
== END | disposition home or self-care (01) ==
LOC: RADXRMAIN 10:46
PROVIDERS: ATTEND Family Medicine
DX: M19.011 Primary osteoarthritis, right shoulder (principal)